=== PATIENT | male | born 1940 | race Caucasian/White ===

== ENCOUNTER 2022-03-27 08:23 | Emergency (ER) | payer OTHER ==
--- OUTSIDE RECORDS SUMMARY | 2022-03-27 08:27 | XMS REPORT | Continuity of Care Document ---
:1940 Author Organization [facility] t Address [address] [place] [address] Care Team Providers Name Role Phone Micheal Balderrama Primary Care Physician HANY RIVERO Attending Clinician Unavailable Hany Rivero MD Attending Clinician Only, Adc Test Attending Clinician Unavailable Pob, Adc Lab Main Attending Clinician Unavailable Doctor Unassigned, [place] Attending Clinician Unavailable HANY RIVERO Admitting Clinician Unavailable Hany Rivero MD Admitting Clinician Payers Payer Name Policy Type Policy Number Effective Date Expiration Date Annemarie SILVA MANAGED [id number] 2021 MEDICARE PPO-ADINA 00:00:00 Problems Condition Condition Condition Status Onset Resolution Last Treating Co mments Source Name Details Category Date Date Treatment Clinician Date NSTEMI NSTEMI Disease Active 2018-05 Methodi (non-ST (non-ST 1-18 st elevated elevated 00:00: Hospit a myocardial myocardial 00 l infarction infarction ) ) 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 Social History Social Habit Start Date Stop Date Quantity Comments Source Exposure to Not sure [facility]-CoV-2 [facility] (event) [place] Tobacco use and 2021-07-14 2021-07-14 Never used Universit y of exposure 00:00:00 00:00:00 [facility] Alcohol intake 2019-03-24 2019-03-24 Current drinker [facility] 00:00:00 00:00:00 of alcohol (finding) Sex Ass[birth year] At [birth year] [facility] 00:00:00 00:00:00 Smoking Status Start Date Stop Date Source Never smoker [facility] Medications Ordered Filled Start Stop Current Ordering Indication Dosage Frequency Signature Comments Components Source Medication Medication Date Date Medication? Clinician (SIG) Name Name lactated 2021- No 1000mL at 50 Unive rs ringers IV 08-02 mL/hr, ity of infusion 13:30: 18:38 1,000 mL, [place] as 1,000 mL 00 :56 IV Medical Infusion, Branch CONTINUOUS , Starting on Sat08/02/21 at 0830, Until Sat08/02/21 at 1338, Routine, PACU ondansetron 2021- No 4mg 4 mg, Slow Univers (ZOFRAN 08-02 IV Push, ity of (PF)) 13:29: 18:38 PRN, 1 [place] injection 4 14 :56 dose, Medical mg Starting Branch on Sat08/02/21 at 0829, Until Sat08/02/21 at 1338, Routine, Nausea and Vomiting (N/V), PACU sodium 2021- No PRN, Univers chloride 08-02 Starting ity of (NS) 13:24: 18:38 on Wed [place] injection 00 :56 1622 at Medi sonali 0824, Branch Until 08/02/21 at 1338, Routine, Intra-op neomycin-po 2021- No PRN, Unive rs lymyxin-dex 08-02 Starting ity of amethasone 13:24: 18:38 on Wed [place] (MAXITROL) 00 :56 08/02/21 at Med ical 3.5 0824, Branch mg/g-10,000 Until Sat unit/g-0.1 08/02/21 at % 1338, ophthalmic Routine, ointment Intra-op dexamethaso 2021- No PRN, Unive rs ne 08-02 Starting ity of (DECADRON 13:24: 18:38 on Sat [place] PHOSPHATE) 00 :56 08/02/21 at Med ical injection 0824, Branch Until Sat08/02/21 at 1338, Routine, Intra-op ceFAZolin 2021- No PRN, Univers (ANCEF) 08-02 Starting ity of injection 13:24: 18:38 on Sat [place] 00 :56 08/02/21 at Medical 0824, Branch Until Sat08/02/21 at 1338, NALDO, Intra-op DUOVISC 2021- No PRN, Univers (DUOVISC 08-02 Starting ity of VISCO 13:17: 18:38 on Sat [place] ELASTIC) 3 00 :56 08/02/21 at Med ical %-4 %(0.5 0817, Branch mL) 1 % Until Sat (0.55 mL) 08/02/21 at intraocular 1338, injection Routine, Intra-op carbachoL 2021- No PRN, Univers (MIOSTAT) 08-02 Starting ity o f 0.01 % 13:16: 18:38 on Sat [place] intraocular 00 :56 08/02/21 at Me dical injection 0816, Branch Until Sat08/02/21 at 1338, Routine, Intra-op EPINEPHrine 2021- No PRN, Unive rs 1:1,000 (1 08-02 Starting ity of mg/mL) 13:13: 18:38 on Sat (ADRENALIN) 00 :56 22 at Me dical injection 0813, Branch Until Sat08/02/21 at 1338, Routine, Intra-op balanced 2021- No PRN, Univers salt irrig 08-02 Starting ity of soln comb1 13:13: 18:38 [place] Sat [place] (BSS PLUS) 00 :56 08/02/21 at Med ical ophthalmic 0813, Branch solution Until Sat 500 mL bag 08/02/21 at 1338, Routine, Intra-op water for 2021- No PRN, Univers irrigation 08-02 Starting ity of irrigation 13:09: 18:38 on Sat [place] solution 00 :56 08/02/21 at Medic al 0809, Branch Until Sat08/02/21 at 1338, Routine, Intra-op Hyaluronida 2021- No PRN, Unive rs se, Human 08-02 Starting ity o f Recomb. 13:06: 18:38 on Sat (HYLENEX) 00 :56 08/02/21 at Medi sonali injection 0806, Branch Until Sat08/02/21 at 1338, Routine, Intra-op eye block 2021- No PRN, Univers syringe 11 08-02 Starting ity of mL 13:06: 18:38 on Sat 00 :56 22 at [facility] 0806, Branch Until Sat08/02/21 at 1338, Intra-op cyclopent 2021- No .5mL 0.5 mL, Univ ers 1%-tropic 08-02 Left Eye, ity of 1%-phenyl 12:00: 11:38 ONCE, 1 [place] 2.5%-ketor 00 :00 dose, On Medic al 0.5% [facility] (MYDRIATIC 08/02/21 at #5) 0700, ophthalmic Routine, solution DSU Pre-op syringe 0.5 mL fenofibrate Yes 145mg Take 145 U nivers 145 mg 3-16 mg by ity of tablet 11:38: mouth [place] 56 daily. [facility] Branch isosorbide Yes 30mg Take 30 mg U nivers mononitrate 3-16 by mouth. ity of 30 mg 24 hr 11:38: [place] tablet Medical Branch metoprolol 0 Yes 12.5mg Take 12.5 Univers tartrate 3-16 mg by ity of 12.5 mg 11:38: mouth 2 [place] [address] (two) Medical times Branch daily. metFORMIN 0 Yes 850mg Take 850 Uni vers 850 mg 3-16 mg by ity of tablet 11:38: mouth 2 [place] [address] (two) Medical times Branch daily with meals. lovastatin 0 Yes 20mg Take 20 mg U nivers 20 mg 3-16 by mouth ity of tablet 11:38: at [place] [address] bedtime. Medical Branch linaGLIPtin 0 Yes Take by Uni vers (TRADJENTA) 3-16 mouth. ity of 5 mg tablet 11:38: [address] Branch valsartan 0 Yes 80mg Take 80 mg Un belem 80 mg 3-16 by mouth ity of tablet 11:38: daily [place] [address] before a Medical meal. Branch COQ10, 0 Yes 300mg Take 300 Univer s UBIQUINOL, 3-16 mg by ity of ORAL 11:38: mouth. [place] [address] Medical Branch docosahexae 0 Yes Take by Uni vers noic 3-16 mouth. ity of acid/epa 11:38: [place] (FISH OIL Medical ORAL) Branch clopidogreL 0 Yes 75mg Take 75 mg Univers 75 mg 3-16 by mouth ity of tablet 11:38: daily. [address] aspirin 81 0 Yes 81mg Take 81 mg U nivers mg chewable 3-16 by mouth ity of tablet 11:38: daily. [address] lactated 0 2021- No 1000mL at 42 Unive rs ringers IV 3-16 03-16 mL/hr, ity of infusion 11:30: 11:48 1,000 mL, [place] as 1,000 mL 00 :00 IV Medical Infusion, Branch ONCE, 1 dose, On Sat08/02/21 at 0630, Routine, DSU Pre-op therapeutic 2018- Yes 1{tbl} QD Take 1 Me thodi multivitami 0-[address] n 16:18: mouth Hospita (THERAGRAN) 55 daily. l tablet coenzyme 2018-05 Yes 100mg QD Take 100 Meth connor Q10 (CO 0-[address] Q-10) 100 16:18: mouth Hospita mg capsule 55 daily. l linagliptin 2018-05 Yes 2.5mg QD Take 2.5 M ethodi (TRADJENTA) 0-[address] 5 mg tablet 16:18: mouth Hospi ta 55 daily with l breakfast. omega 2018-05 Yes 1000mg QD Take 1,000 Meth connor 3-dha-epa-f 0-[address] yenifer oil 16:18: mouth Hospita (FISH OIL) 55 daily. l 1,000 mg (120 mg-180 mg) capsule valsartan 2018-05 Yes 80mg QD Take 80 mg Me thodi (DIOVAN) 0-[address] 160 MG 16:18: daily. Hospita tablet 55 l metFORMIN 2018-05 Yes 850mg Q.5D Take 850 Met hodi (GLUCOPHAGE 0-[address] ) 850 mg 16:18: mouth 2 Hospit a tablet 55 (two) l times a day with meals. esomeprazol 2018-05 Yes 40mg QD Take 40 mg Methodi e (NexIUM) 0-[address] 40 MG 16:18: daily Hospita capsule 55 before l breakfast. fenofibrate 2018-05 Yes 145mg QD Take 145 M ethodi (TRICOR) 0-[address] 145 MG 16:18: mouth Hospita tablet 55 daily. l aspirin 2018-05 Yes 81mg QD Take 81 mg Meth connor (ECOTRIN) 0-[address] 81 MG 16:18: daily. Hospita enteric 55 l coated tablet nitroglycer Yes .4mg Place 1 Met hodi in 01-[address] (NITROSTAT) 00:00: (0.4 mg Hos darin 0.4 MG SL 00 total) l tablet under the tongue every 5 (five) minutes as needed for chest pain. rosuvastati Yes 20mg QD Take 2 Meth connor n (CRESTOR) 01-[address] 10 MG 00:00: (20 mg Hospita tablet 00 total) by l mouth daily. clopidogrel Yes 75mg QD Take 1 Meth connor (PLAVIX) 75 01-26 tablet (75 st mg tablet 00:00: mg total) Hos darin 00 by mouth l daily. isosorbide 2019-0 Yes 30mg QD Take 1 Metho di mononitrate 9-09 tablet (30 st (IMDUR) 30 00:00: mg total) Ho spita MG 24 hr 00 by mouth l tablet every evening. Immunizations Ordered Immunization Filled Immunization Date Status Commen ts Source Name Name PFIZER COVID-19 MRNA 2020-06-29 Completed Meth odist VACCINATION 00:00:00 [facility] PFIZER COVID-19 MRNA 2020-06-08 Completed Meth odist VACCINATION 00:00:00 Hospital Pneumococcal 2019-01-26 Completed Jew Conjugate 13-Valent 00:00:00 Hospi christine FLUCELVAX QUAD PF 2019-01-[address] 00:00:00 Hospital Vital Signs Vital Name Observation Time Observation Value Comments Source Systolic blood 2021-08-02 11:35:00 160 mm[Hg] [facility] Diastolic blood 2021-08-02 11:35:00 75 mm[Hg] [facility] Heart rate 2021-08-02 11:35:00 67 /min [facility] Body temperature 2021-08-02 11:35:00 36.39 [facility] Respiratory rate 2021-08-02 11:35:00 18 /min [facility] Oxygen saturation in 2021-08-02 11:35:00 100 /min [facility] Arterial blood by [facility] Pulse oximetry [place] Body height 2021-07-27 17:59:00 170 cm [facility] Body weight 2021-07-27 17:59:00 83.9 kg [facility] BMI 2021-07-27 17:59:00 29.03 kg/m2 [facility] Procedures Procedure Date / Time Performing Source Performed Clinician PHACOEMULSIFICATION OF 2021-08-02 Hany Rivero [facility] CATARACT WITH INTRAOCULAR 12:53:00 [facility] LENS IMPLANT POCT GLUCOSE (AUTOMATED) 2021-08-02 Hany Rivero [facility] 11:43:00 [facility] PATIENT QUESTIONNAIRE 2021-08-02 Doctor Unassigned, [facility] 05:01:00 [place] [facility] DAY SURGERY - ADC 2021-08-02 Doctor Unassigned, [facility] 05:01:00 [place] [facility] CONSENT/REFUSAL FOR DIAGNOSIS 2021-07-31 Doctor Unassigned, [facility] AND TREATMENT 14:48:25 [place] [facility] ASSIGNMENT OF BENEFITS 2021-07-31 Doctor Unassigned, [facility] 14:47:36 [place] [facility] [place] Plan of Care Planned Activity Planned Date Details Comments Source Future Scheduled 2022-03-21 HEPATITIS B VACCINES Met [facility] Test 21:30:53 (1 of 3 - 3-dose series) [code = HEPATITIS B VACCINES (1 of 3 - 3-dose series)] Future Scheduled 2022-03-21 SHINGLES VACCINES (1 Met [facility] Test 21:30:53 of 2) [code = SHINGLES VACCINES (1 of 2)] Future Scheduled 2022-03-21 65+ [facility] 21:30:53 VACCINE (2 - PPSV23 if available, else PCV20) [code = 65+ PNEUMOCOCCAL VACCINE (2 - PPSV23 if available, else PCV20)] Future Scheduled 2022-03-21 COVID-19 VACCINE (3 - Me [facility] Test 21:30:53 Booster for Pfizer series) [code = COVID-19 VACCINE (3 - Booster for Pfizer series)] Future Scheduled 2022-03-21 INFLUENZA VACCINE Method [facility] Test 21:30:53 [code = INFLUENZA VACCINE] Encounters Start End Encounter Admission Attending Care Care Encounter Source Date/Time Date/Time Type Type Clinicians Facility Department ID 2021-08-02 2021-08-02 Outpatient R CALLY RIVERO OPH [id number] Univers 06:27:00 09:15:00 HANY bergeron [facility] 2021-08-02 2021-08-02 Hospital Grady AZGERSON [id number] Univers 06:27:00 09:15:00 Encounter Hany [id number] [facility] [id number] [facility] SURGICAL [id number] [place] [address] Branch 2021-08-02 2021-08-02 Surgery Grady AZGERSON [id number] Univers 07:30:00 08:08:00 Hany ABRAMS [id number] [place]y [id number]ICAL [id number] [facility] 020 Branch 2021-07-19 2021-07-19 Outpatient R GRADY [facility] OPH [id number] Univers 06:33:00 09:23:00 HANY bergeron [facility] 2021-07-19 2021-07-19 [facility] [id number] Univers 06:33:00 09:23:00 Encounter Hany Simpson JOSE ALBERTO [id number] [id number] SUR[place]ICAL [id number] [facility] 071 Branch 2021-07-19 2021-07-19 Surgery [facility] [id number] Univers 07:30:00 08:12:00 Hany Tatiana JOSE ALBERTO [id number] [place]y [place] [id number] SURGICAL [id number] [facility] 020 Branch 2021-07-17 2021-07-17 Laboratory Only, Adc Test [facility] [id number] Univers 09:00:00 09:15:00 Only Grady Hany Tatiana JOSE ALBERTO [id number] 0 [place] [id number] [place] CAMPUS [id number] [facility] 353 [place] 2021-07-17 2021-07-17 Outpatient Sugar RIVERO [facility] [id number] Univers 09:00:00 09:00:00 HANY bergeron [facility] 2021-07-14 2021-07-14 [employer] Tester Yessenia, Adc Lab Main [facility] [id number] Univers 10:15:00 10:30:00 Visit Hany Rivero [id number] 0 [place] [id number] PROFESSIO [id number] [address] 2021-07-14 2021-07-14 Outpatient R GRADY [facility] [id number] Univers 10:15:00 10:15:00 HANY bergeron of [facility] 2021-07-14 2021-07-14 Orders Doctor JOSE [id number] Univers 00:00:00 00:00:00 Only Unassigned, JORDON [id number] ity of [place] [facility] [id number] [place] as [id number] [address] 2020-06-29 2020-06-29 Outpatient [facility] [id number] [place] 00:00:00 00:00:[address] 2020-06-08 2020-06-08 Outpatient [facility] [id number] [place] 00:00:00 00:00:[address] Results Test Description Test Time Test Comments Results Result Comments Source POCT GLUCOSE (AUTOMATED) 2021-08-02 12:11:49 Test Item Value Reference Range Interpretation Comme nts POCT GLU (test code = 7810506320) 139 mg/dL 70-110 H Lab Interpretation (test code = 05647-1) [id number] 11:43:00 Test Item Value Reference Range Interpretation Comments POCT Glu (age>30days) (test code = 139 mg/dL 70-110 A 3342) Lab Interpretation (test code = Abnormal 00253-3) [facility]
[2022-03-27 08:46] LABS: Absolute Lymphocytes (CBC) 1.1 K/uL (0.7-4.9); Hematocrit 41.1 % (39.6-49.0); Lymphocytes % 7.1 % (15.3-44.8); MCV 96.8 fL (80-100); MPV 8.5 fL (7.6-11.3); RBC Red Blood Cell Count 4.25 M/uL (4.33-5.43)
[2022-03-27 08:51] LABS: Protime INR 1.04
[2022-03-27 09:08] LABS: Potassium 4.1 mmol/L (3.5-5.1); Troponin High Sensitivity 10.2 pg/mL (<58.9)
--- NOTE | 2022-03-27 09:35 | RAD REPORT ---
EXAM DESCRIPTION: RAD - Chest Single View - 03/27/2022 9:22 am CLINICAL HISTORY: CHEST PAIN COMPARISON: None TECHNIQUE: AP portable chest image was obtained 03/27/2022 9:22 am . FINDINGS: No focal mass or consolidation. Interstitial pattern is accentuated by under penetrated po rtable technique. Increased density in the lower left lung field is believed to be calcification at t he costochondral junction. No failure or volume overload. Heart and vasculature are normal. No measurable pleural effusion and no pneumothorax. No acute bony abnormality seen. No acute aortic findings suspected. IMPRESSION: No acute cardiopulmonary process.
--- NOTE | 2022-03-27 10:29 | EDPHYS ---
Physician Documentation [facility] Name: Gerardo Lane City Age: 82 yrs Sex: Male : 1940 Arrival Date: 03/27/2022 Time: 08:31 Bed 4 Private MD: ED Physician hCas Seaman HPI: 03/27 09:15 This 82 yrs old Male presents to ER via EMS with complaints of chest pain. rn 09:15 The patient or guardian reports chest pain that is located primarily in the substernal rn area. Onset: this morning. The pain does not radiate. Associated signs and symptoms: Pertinent positives: None. Pertinent negatives: abdominal pain, cough, shortness of breath, syncope, vomiting. The chest pain is described as a heaviness, a pressure. Duration: The patient or guardian reports a single episode, that is still ongoing. Modifying factors: The symptoms are alleviated by NTG, the symptoms are aggravated by nothing. Severity of pain: At its worst the pain was moderate in the emergency department the pain has improved. Severity of pain: in the emergency department the pain is a 1 / 10. The patient has experienced similar episodes in the past. The patient has not recently seen a physician. Pt reports chest pain, substernal, pressure, similar to previous CA, began this AM, no radiation, improved after 5 nitro. . Historical: - Allergies: 08:40 No Known Allergies; tw2 - Home Meds: 08:48 amlodipine 2.5 mg tab 1 tab once daily [Active]; Plavix 75 mg Oral tab 1 tab once daily tw2 [Active]; esomeprazole magnesium 40 mg oral grps 1 packet once daily [Active]; fenofibrate 145 mg oral cap 1 cap once daily [Active]; isosorbide mononitrate 60 mg Oral Tb24 1 tab once daily [Active]; Metoprolol Tartrate 12.5 mg Oral [Active]; metformin 850 mg Oral tab 1 tab 2 times per day [Active]; nitroglycerin 0.4 mg SL subl 1 tab [Active]; rosuvastatin 20 mg oral tab 1 tab once daily [Active]; Tradjenta 5 mg oral tab 1 tab once daily [Active]; valsartan 80 mg oral tab 1 tab once daily [Active]; aspirin 81 mg Oral cap 1 cap once daily [Active]; CoQ-10 300 mg oral [Active]; Fish Oil 1,000 mg (120 mg-180 mg) oral cap [Active]; Multiple Vitamins oral tab [Active]; - PMHx: 08:40 Diabetes mellitus; Stemi; tw2 - PSHx: 08:40 6 cardiac stents; tw2 - Immunization history:: Adult Immunizations. - Social history:: Smoking status: . - Family history:: not pertinent. - Hospitalizations: : No recent hospitalization is reported. ROS: 09:15 Constitutional: Negative for fever, chills, and weight loss, Eyes: Negative for injury, rn pain, redness, and discharge, Neck: Negative for injury, pain, and swelling, Cardiovascular: + chest pain Respiratory: Negative for shortness of breath, cough, wheezing, and pleuritic chest pain, Abdomen/GI: Negative for abdominal pain, nausea, vomiting, diarrhea, and constipation, Back: Negative for injury and pain, MS/Extremity: Negative for injury and deformity, Skin: Negative for injury, rash, and discoloration, Neuro: Negative for headache, weakness, numbness, tingling, and seizure. Exam: 09:15 Constitutional: This is a well developed, well nourished patient who is awake, alert, rn and in no acute distress. Head/Face: Normocephalic, atraumatic. Cardiovascular: Tachycardic, regular. No pulse deficits. Respiratory: Mild tachypnea, no retractions Abdomen/GI: Soft, non-tender Skin: Warm, dry MS/ Extremity: Pulses equal, no cyanosis. Neuro: Awake and alert, GCS 15 10:13 ECG was reviewed by the Attending Physician. rn Vital Signs: 08:25 BP 133 / 78; Pulse 112; Resp 25; Temp 98.4(TE); Pulse Ox 97% on R/A; Weight 81.65 kg tw2 (R); Height 5 ft. 7 in. (170.18 cm); Pain 0/10; 09:39 BP 137 / 81; Pulse 110; Resp 22; Pulse Ox 96% on R/A; tw2 10:30 BP 136 / 75; Pulse 108; Resp 20; Pulse Ox 96% on R/A; tw2 11:33 BP 130 / 59; Pulse 109; Resp 17; Pulse Ox 97% on R/A; tw2 12:21 BP 130 / 69; Pulse 110; Resp 19; Pulse Ox 97% on R/A; tw2 08:25 Body Mass Index 28.19 (81.65 kg, 170.18 cm) tw2 MDM: 08:31 Patient medically screened. rn 10:27 Differential diagnosis: acute myocardial infarction, acute pericarditis, coronary rn artery disease chest wall pain, pleurisy, pneumothorax, stable angina, unstable angina. The patient was not given aspirin in the Emergency Department. Administered by EMS. 10:28 Data reviewed: vital signs, nurses notes, lab test result(s), EKG, radiologic studies, rn plain films, and as a result, I will admit patient. Counseling: I had a detailed discussion with the patient and/or guardian regarding: the historical points, exam findings, and any diagnostic results supporting the discharge/admit diagnosis, lab results, radiology results, the need to transfer to another facility, his hog raiser is at [facility], requests transfer to [facility]. Response to treatment: the patient's symptoms have markedly improved after treatment, declines pain medication. , and as a result, I will admit patient. Admission orders: after a detailed discussion of the patient's condition and case, the admit orders are written by me. Admission orders: after a detailed discussion of the patient's condition and case, the admit orders are written by me. 12:03 Refusal of service: The patient/guardian displays adequate decision making capability rn and despite a detailed discussion of alternatives, benefits, risks, and consequences refuses: Admission to the hospital for further work-up and treatment. ED course: [facility] unable to accommodate patient, even ER to ER transfer, I spoke with patient;s hog raiser Dr. Hassan and he called transfer center to try and make room, unable to as well. Patient and family do not want to be admitted here or transferred anywhere other than [facility]. They refuse admission here. They want to take patient home and are considering taking patient to [facility] by private vehicle. My official recommendation was to admit here for cardiology. They understand risks of leaving without cardiology consultation and intervention. . 03/27 08:32 Order name: Basic Metabolic Panel; Complete Time: :14 rn 03/27 08:32 Order name: CBC with Diff; Complete Time: : rn 03/27 08:32 Order name: NT PRO-BNP; Complete Time: : rn 03/27 08:32 Order name: PT-INR; Complete Time: 09:14 rn 03/27 08:32 Order name: Troponin HS; Complete Time: 09:14 rn 03/27 08:32 Order name: XRAY Chest (1 view); Complete Time: 09:38 rn 03/27 08:32 Order name: EKG; Complete Time: 08:33 rn 03/27 08:32 Order name: Cardiac monitoring; Complete Time: 08:36 rn 03/27 08:32 Order name: EKG - Nurse/Tech; Complete Time: 08:36 rn 03/27 08:32 Order name: IV Saline Lock; Complete Time: 08:36 rn 03/27 08:32 Order name: Labs collected and sent; Complete Time: 08:44 rn 03/27 08:32 Order name: O2 Per Protocol; Complete Time: 08:36 rn 03/27 08:32 Order name: O2 Sat Monitoring; Complete Time: 08:36 rn EC:13 Rate is 115 beats/min. Rhythm is regular. Left axis deviation noted. QRS is positive in rn lead I and negative in lead aVF. NH interval is normal. QRS interval is normal. QT interval is normal. No Q waves. T waves are Normal. No ST changes noted. Clinical impression: Sinus tachycardia. Interpreted by me. Reviewed by me. Administered Medications: 10:34 Drug: PlaVIX (clopidogrel) 75 mg Route: PO; tw2 11:35 Follow up: Response: No adverse reaction tw2 Disposition Summary: 03/27/22 12:03 Discharge Ordered Location: Home rn Problem: new(03/27/22 12:03) rn Symptoms: have improved(03/27/22 12:03) rn Condition: Stable(03/27/22 12:03) rn Diagnosis - Chest pain, unspecified(03/27/22 12:03) rn Followup: rn - With: Private Physician - When: Upon discharge from the Emergency Department - Reason: Recheck today's complaints, Re-evaluation by your physician Discharge Instructions: - Discharge Summary Sheet rn - Nonspecific Chest Pain, Adult rn Forms: - Medication Reconciliation Form rn - Thank You Letter rn - Antibiotic pharmacy graduate intern - Prescription Opioid Use rn Signatures: Dispatcher [employer] EDChas Dash MD MD rn Wise, Tara, RN RN tw2 Corrections: (The following items were deleted from the chart) : 10: Dr. Hassan rn rn 10: [facility] rn rn 10: Higher level of care rn rn : Stable rn rn 10: new rn rn : have improved rn rn : 10: Chest pain, unspecified rn rn
--- NOTE | 2022-03-27 10:29 | ER ---
Nurse's Notes [facility] Name: Gerardo Dawson Age: 82 yrs Sex: Male : 1940 Arrival Date: 03/27/2022 Time: 08:31 Bed 4 Private MD: Diagnosis: Chest pain, unspecified Presentation: 03/27 08:25 Chief complaint: EMS states: pt states chest pain started 2.5 hours ago. pain does not tw2 radiate. pain /. 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 we gave 2 Nitro SL and it did reduce pain /. BP 160/70's HR 120's. BGL 199. does take Plavix. Pt took Plavix yesterday. Hx: 6 cardiac stents, stemi, dm. Coronavirus screen: At this time, the client does not indicate any symptoms associated with coronavirus-19. Ebola Screen: Patient denies travel to an Ebola-affected area in the 21 days before illness onset. Initial Sepsis Screen: Does the patient meet any 2 criteria? HR > 90 bpm. No. Patient's initial sepsis screen is negative. Does the patient have a suspected source of infection? No. Patient's initial sepsis screen is negative. Risk Assessment: Do you want to hurt yourself or someone else? Patient reports no desire to harm self or others. Note provider at bedside at this time. Onset of symptoms was March 27, 2022. Care prior to arrival: Medication(s) given: Nitroglycerin, 0.4 mg SL x 2, IV initiated. 18 GA, in the left antecubital area, Glucose check: 199. 08:25 Method Of Arrival: EMS: [facility] tw2 08:25 Acuity: JONG 3 tw2 Triage Assessment: 08:40 General: Appears in no apparent distress. well groomed, Behavior is calm, cooperative, tw2 appropriate for age. Pain: Denies pain. Neuro: Level of Consciousness is awake, alert, obeys commands, Oriented to person, place, time, situation. Cardiovascular: Capillary refill < 3 seconds Patient's skin is warm and dry. Respiratory: Airway is patent Respiratory effort is even, unlabored, Respiratory pattern is regular, symmetrical. GI: No signs and/or symptoms were reported involving the gastrointestinal system. Abdomen is round non-distended. : No signs and/or symptoms were reported regarding the genitourinary system. Musculoskeletal: Range of motion: intact in all extremities. Historical: - Allergies: 08:40 No Known Allergies; tw2 - Home Meds: 08:48 amlodipine 2.5 mg tab 1 tab once daily [Active]; Plavix 75 mg Oral tab 1 tab once daily tw2 [Active]; esomeprazole magnesium 40 mg oral grps 1 packet once daily [Active]; fenofibrate 145 mg oral cap 1 cap once daily [Active]; isosorbide mononitrate 60 mg Oral Tb24 1 tab once daily [Active]; Metoprolol Tartrate 12.5 mg Oral [Active]; metformin 850 mg Oral tab 1 tab 2 times per day [Active]; nitroglycerin 0.4 mg SL subl 1 tab [Active]; rosuvastatin 20 mg oral tab 1 tab once daily [Active]; Tradjenta 5 mg oral tab 1 tab once daily [Active]; valsartan 80 mg oral tab 1 tab once daily [Active]; aspirin 81 mg Oral cap 1 cap once daily [Active]; CoQ-10 300 mg oral [Active]; Fish Oil 1,000 mg (120 mg-180 mg) oral cap [Active]; Multiple Vitamins oral tab [Active]; - PMHx: 08:40 Diabetes mellitus; Stemi; tw2 - PSHx: 08:40 6 cardiac stents; tw2 - Immunization history:: Adult Immunizations. - Social history:: Smoking status: . - Family history:: not pertinent. - Hospitalizations: : No recent hospitalization is reported. Screenin:41 Abuse screen: Denies threats or abuse. Nutritional screening: No deficits noted. tw2 Nutritional screening: No deficits noted. Tuberculosis screening: No symptoms or risk factors identified. Fall Risk None identified. Assessment: 08:39 Reassessment: Patient is alert, oriented x 3, equal unlabored respirations, skin aa5 warm/dry/pink. Pt notified of wait time for blood lab results. . 08:41 Reassessment: pts spouse at bedside at this time. see triage assessment. tw2 09:39 Reassessment: Patient appears in no apparent distress at this time. No changes from tw2 previously documented assessment. Patient and/or family updated on plan of care and expected duration. Pain level reassessed. Patient is alert, oriented x 3, equal unlabored respirations, skin warm/dry/pink. 10:30 Reassessment: Patient appears in no apparent distress at this time. No changes from tw2 previously documented assessment. Patient and/or family updated on plan of care and expected duration. Pain level reassessed. Patient is alert, oriented x 3, equal unlabored respirations, skin warm/dry/pink. 11:34 Reassessment: Patient appears in no apparent distress at this time. No changes from tw2 previously documented assessment. Patient and/or family updated on plan of care and expected duration. Pain level reassessed. Patient is alert, oriented x 3, equal unlabored respirations, skin warm/dry/pink. Vital Signs: 08:25 BP 133 / 78; Pulse 112; Resp 25; Temp 98.4(TE); Pulse Ox 97% on R/A; Weight 81.65 kg tw2 (R); Height 5 ft. 7 in. (170.18 cm); Pain 0/10; 09:39 BP 137 / 81; Pulse 110; Resp 22; Pulse Ox 96% on R/A; tw2 10:30 BP 136 / 75; Pulse 108; Resp 20; Pulse Ox 96% on R/A; tw2 11:33 BP 130 / 59; Pulse 109; Resp 17; Pulse Ox 97% on R/A; tw2 12:21 BP 130 / 69; Pulse 110; Resp 19; Pulse Ox 97% on R/A; tw2 08:25 Body Mass Index 28.19 (81.65 kg, 170.18 cm) tw2 ED Course: 08:30 Placed in gown. Bed in low position. Side rails up X2. check cashier on. Pulse ox on. tw2 NIBP on. Warm blanket given. Pillow given. 08:31 Patient arrived in ED. rn 08:31 Chas Seaman MD is Attending Physician. rn 08:36 Lisa Lynn, TIFFANIE is Primary Nurse. tw2 08:39 Initial lab(s) drawn, by me, sent to lab. aa5 08:39 Maintain EMS IV. Dressing intact. Good blood return noted. Site clean \\T\\ dry. Gauge \\T\\ aa 5 site: 18G to L AC . 08:40 Triage completed. tw2 08:40 Arm band placed on. tw2 09:24 XRAY Chest (1 view) In Process Unspecified. EDMS 10:17 initiated transfer to [facility]. bd 10:20 pt denied at [facility] due to no capacity, per [place]. bd 11:17 spoke with Agustina at [facility], dr Hassan did initiate transfer but facility is at capacity with ER on saturation and are not able to take the patient at this time. 12:20 No provider procedures requiring assistance completed. IV discontinued, intact, tw2 bleeding controlled, No redness/swelling at site. Pressure dressing applied. Administered Medications: 10:34 Drug: PlaVIX (clopidogrel) 75 mg Route: PO; tw2 11:35 Follow up: Response: No adverse reaction tw2 Medication: 08:41 VIS not applicable for this client. tw2 Outcome: 10:29 ER care complete, transfer ordered by MD. rn 12:03 Discharge ordered by MD. rn 12:20 Discharged to home via wheelchair, with family. tw2 12:20 Condition: stable 12:20 Discharge instructions given to patient, family, Instructed on discharge instructions, follow up and referral plans. Demonstrated understanding of instructions, follow-up care, going to pts stage hand. pts states "yes, we are going straight there" 12:21 Patient left the ED. tw2 Signatures: Dispatcher [employer] EDMS Shanna Deng Roman, MD MD rn Calderon, Audri RN RN aa5 Lisa Lynn RN RN tw2
[2022-03-27] MEDS ORDERED: CLOPIDOGREL 75 MG TABLET ONE (10:31)
[2022-03-27 12:53] VITALS: TEMP 98.4
[2022-03-27 12:57] VITALS: O2SAT 97
[2022-03-27 12:58] VITALS: BP 130/69
--- NOTE | 2022-03-27 13:55 | EKG ---
Test Date: 2022-03-27 Test Time: 08:32:51 Dissolver Operator: IKE MEASUREMENT RESULTS: Intervals: Rate: 115 MO: 166 QRSD: 80 QT: 314 QTc: 434 [place]: P: 69 MO: 166 QRS: -54 T: 64 INTERPRETIVE STATEMENTS: Sinus tachycardia Left axis deviation Possible Lateral infarct, age undetermined Inferior infarct, age undetermined Abnormal ECG Compared to ECG 04/22/2008 09:09:01 Left-axis deviation now present Myocardial infarct finding now present Sinus rhythm no longer present Electronically Signed On 03-27-22 13:53:52 MASS SPECTROMETRY SPECIALIST by Sawyer Stevens
== END 2022-03-27 12:21 | disposition home or self-care (01) ==
LOC: ER 08:23
DX: R07.9 Chest pain, unspecified (principal); E11.9 Type 2 diabetes mellitus without complications; Z95.5 Presence of coronary angioplasty implant and graft
CPT/HCPCS: 36415; 71045; 80048; 83880; 84484; 85025; 85610; 93005; 99284

== ENCOUNTER 2023-12-16 08:58 | Inpatient (IN) | payer OTHER ==
[2023-12-16 09:21] LABS: Absolute Eosinophils 0.2 K/uL (0-0.5); Absolute Lymphocytes (CBC) 1.7 K/uL (0.7-4.9); Absolute Monocytes 0.8 K/uL (0.1-1.3); Absolute Neutrophil 5.5 K/uL (1.8-8.0); Basophils % 0.5 % (0-1.3); Eosinophils % 1.9 % (0-4.4); Hematocrit 32.9 % (39.6-49.0); Hemoglobin 10.9 g/dL (13.6-17.9); Lymphocytes % 20.3 % (15.3-44.8); MCH 33.7 pg (27.0-35.0); MCV 102.4 fL (80-100); MPV 9.1 fL (7.6-11.3); Monocytes % 9.9 % (3.3-12.3); Neutrophils % 67.4 % (41.7-73.7); Platelets 176 thou/uL (152-406); RBC Red Blood Cell Count 3.22 M/uL (4.33-5.43); Red Cell Distribution Width 13.6 % (12.1-15.2)
--- NOTE | 2023-12-16 09:26 | RAD REPORT ---
EXAM DESCRIPTION: CT - Ct Stroke Brain Wo Cont - 12/16/2023 9:17 am CLINICAL HISTORY: STROKE ALERT COMPARISON: No comparisons TECHNIQUE: Noncontrast head CT images were obtained without IV contrast. Multiplanar reformats were generated and reviewed. All CT scans are performed using dose optimization technique as appropriate and may include automated exposure control or mA/KV adjustment according to patient size. FINDINGS: No intracranial hemorrhage, mass, or edema. Midline structures are unremarkable. Normal ventricular caliber for age. Tavares-white matter differentiation is preserved, without evidence of acute infarct. No abnormal extra- axial fluid collections. Mastoid air cells and visualized portions of the paranasal sinuses are clear. No acute bony findings. IMPRESSION: No evidence of an acute intracranial process. The findings were communicated to Chas Seaman on 12/16/2023 at 09:22 hours.
[2023-12-16 09:27] LABS: PTT, Activated Partial Thromb 22.7 SECONDS (24.3-36.9); Protime INR 1.07
--- NOTE | 2023-12-16 09:28 | RAD REPORT ---
EXAM DESCRIPTION: CT - Head angio - 12/16/2023 9:17 am CLINICAL HISTORY: stroke COMPARISON: Ct Stroke Brain Wo Cont dated 12/16/2023; Neck Angio dated 12/16/2023 TECHNIQUE: Axial CT angiography images of the head was performed with multiplanar and maximum intens ity projection reconstructions. Images performed following intravenous administration of iodinated c ontrast. All CT scans are performed using dose optimization technique as appropriate and may include automated exposure control or mA/KV adjustment according to patient size. FINDINGS: No evidence of large vessel occlusion. Up to moderate atherosclerotic calcifications along the bilateral carotid siphons with no significant stenosis. No evidence of aneurysm or dissection fl ap is detected. No flow-limiting stenosis or vascular malformation identified. Antegrade flow is seen in the vertebral arteries. The vertebral arteries are codominant. The visualized dural venous sinuses are grossly patent. Nonspecific gas locules along the cavernous sinuses, left sigmoid sinus, and in the infratemporal sof t tissues, likely iatrogenic. IMPRESSION: No evidence of large vessel occlusion or flow-limiting stenosis.
--- NOTE | 2023-12-16 09:29 | RAD REPORT ---
EXAM DESCRIPTION: CT - Neck Angio - 12/16/2023 9:17 am CLINICAL HISTORY: stroke aler COMPARISON: Ct Stroke Brain Wo Cont dated 12/16/2023; Head angio dated 12/16/2023 TECHNIQUE: Axial CT angiography images of the neck was performed with multiplanar and maximum intens ity projection reconstructions. Images performed following intravenous administration of iodinated c ontrast. All CT scans are performed using dose optimization technique as appropriate and may include automated exposure control or mA/KV adjustment according to patient size. Quantification of carotid stenosis, if any, is performed according to NASCET criteria. 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 No significant flow abnormality is seen of the common carotid bilaterally. [id number] bilateral proximal ICA atherosclerotic changes. No significant stenosis is identifie d involving the cervical segments of both internal carotid arteries. Normal flow is seen within both vertebral arteries. IMPRESSION: No significant flow abnormality of the neck vessels is identified. CAROTID STENOSIS REFERENCE USING NASCET CRITERIA: % ICA stenosis = (1 - narrowest ICA diameter/diameter of distal cervical ICA) x 100. Mild - <50% stenosis. Moderate - 50-69% stenosis. Severe - 70-94% stenosis. Near occlusion - 95-99% stenosis. Occluded - 100% stenosis.
[2023-12-16] MEDS ORDERED: TENECTEPLASE 50 MG/10 ML VIAL IV ONE (09:40)
[2023-12-16 09:49] LABS: Blood Morphology Comment NOT SEEN (NOT SEEN); Platelet Estimate ADEQ; White Blood Cell Scan OK (OK)
[2023-12-16] MEDS ORDERED: METOCLOPRAMIDE 10 MG/2mL INJ ONE (10:07)
[2023-12-16] MEDS ORDERED: NA CHLORIDE 0.9% 50 ML ONE (10:08)
[2023-12-16 10:20] LABS: Anion Gap 10.1 mEq/L (5.0-15.0); Bilirubin Direct 0.2 mg/dL (0-0.2); Bilirubin Indirect, Calculated 0.2 mg/dL (0.2-0.8); Bilirubin Total 0.4 mg/dL (0.2-1.0); Globulin 2.9 g/dL (2.3-3.5); Potassium 4.1 mEq/L (3.5-5.1); Protein, Total 5.9 g/dL (6.4-8.2); Troponin High Sensitivity 5.1 pg/mL (<58.9)
--- NOTE | 2023-12-16 10:26 | ER ---
Nurse's Notes [facility] Name: Gerardo Dawson Age: 83 yrs Sex: Male : 1940 Arrival Date: 12/16/2023 Time: 08:58 Bed 2 Private MD: Diagnosis: Slurred speech;Weakness Presentation: 12/15 09:04 Coronavirus screen: At this time, the client does not indicate any symptoms associated ld1 with coronavirus-19. Ebola Screen: No symptoms or risks identified at this time. Risk Assessment: Do you want to hurt yourself or someone else? Patient reports no desire to harm self or others. Onset of symptoms was December 16, 2023. 09:04 Method Of Arrival: EMS: [facility] ld1 09:04 Acuity: JONG 2 ld1 09:32 Chief complaint: EMS states: they were called to the patients home for s/s of possible ap3 stroke. reported to EMS that the patient was at the table and called out to her that he thought he was having a stroke. patients last known well is 0815 per 's report. patient reported to that he had bilateral hand numbness. patients reported that his speech was slowed and slurred compared to his baseline. Initial Sepsis Screen: Does the patient meet any 2 criteria? No. Patient's initial sepsis screen is negative. Does the patient have a suspected source of infection? No. Patient's initial sepsis screen is negative. Care prior to arrival: Medication(s) given: Normal saline infusion, zofran 4 mg, IV initiated. 20 GA, in the right forearm. Triage Assessment: 09:34 General: Appears comfortable, Behavior is cooperative. Pain:. Neuro: Level of ap3 Consciousness is obeys commands, confused, Oriented to person, place, Speech patients reports the patients speech is slower and more slurred compared to patients baseline . Cardiovascular:. Cardiovascular: Pulses are palpable in right radial artery and left radial artery. Respiratory: Airway is patent Respiratory effort is even, unlabored, Respiratory pattern is regular, symmetrical. Derm: Skin is diaphoretic. Historical: - Allergies: 09:03 No Known Allergies; ld1 - PMHx: 09:03 diabetes mellitus; STEMI; ld1 - PSHx: :03 6 cardiac stents; ld1 - Immunization history:: Adult Immunizations up to date. - Infectious Disease History:: Denies. - Social history:: Smoking status: Patient denies any tobacco usage or history of. Screenin:37 Abuse screen: Denies threats or abuse. Nutritional screening: No deficits noted. ap3 Tuberculosis screening: No symptoms or risk factors identified. 10:01 VAN Screening: Arm Drift: Patient shows no arm weakness. Patient is VAN negative. es3 Visual Disturbance: No visual disturbance noted. Aphasia: No aphasia noted. Neglect: No neglect noted. 10:46 [place] Swallow Protocol Brief Cognitive Screen What is your name? Normal, Where are you ap3 right now? Normal, What year is it? Normal. Oral Mechanism Examination Facial Symmetry: Normal, Motion: Normal, Lip Closure: Normal, Oral Mechanism Result: Normal. 3 oz Water Swallow Challenge: Pt able to drink all water without stopping, coughing, choking or throat clearing: Yes Result: PASS MD Notified: Osorio Palmer MD. Assessment: 09:02 Reassessment: Code stroke called. ERP at bedside assessing patient. ld1 09:03 Reassessment: Pt to CT at this time. ld1 10:18 Reassessment: Patient states symptoms have improved. General: Appears in no apparent ap3 distress. Behavior is cooperative. Neuro: Level of Consciousness is awake, alert, obeys commands, Oriented to person, place, Die Mounter are equal bilaterally Speech improving. Cardiovascular: Patient's skin is warm and dry. Respiratory: Airway is patent Respiratory effort is even, unlabored, Respiratory pattern is regular, symmetrical. 11:58 Reassessment: report given to ICU receiving nurse. ap3 Vital Signs: 09:32 BP 144 / 82; Pulse 77; Resp 16; Pulse Ox 95% on R/A; ap3 10:18 BP 138 / 72; Pulse 78; Resp 17; Temp 98.2; Pulse Ox 98% on R/A; Weight 81.19 kg; ap3 10:50 BP 127 / 75; Pulse 75; Resp 17; Pulse Ox 100% on R/A; ap3 11:59 BP 149 / 80; Pulse 79; Resp 18; Pulse Ox 100% on R/A; ap3 NIH Stroke Scale Scores: 10:03 NIHSS Score: 2 es3 10:13 NIHSS Score: 2 ec2 ED Course: 09:03 Patient arrived in ED. ap3 09:03 Osorio Palmer MD is Attending Physician. ec2 09:04 Triage completed. ld1 09:04 Arm band placed on right wrist. ld1 09:19 CT Neck Angio In Process Unspecified. EDMS 09:19 CT Stroke Brain w/o Contrast In Process Unspecified. EDMS 09:19 Head angio In Process Unspecified. EDMS 09:32 Sofia Christie, TIFFANIE is Primary Nurse. ap3 09:56 AMMONIA Sent. ld1 10:19 Patient has correct armband on for positive identification. Placed in gown. Bed in low ap3 position. Call light in reach. Side rails up X2. Client placed on continuous cardiac and pulse oximetry monitoring. NIBP monitoring applied. patient monitor on. Pulse ox on. NIBP on. 10:24 Stroke CXR 1 View In Process Unspecified. EDMS 10:25 Tatiana Balderrama MD is Hospitalizing Provider. ec2 Administered Medications: 09:45 Drug: TNK FOR STROKE - Tenecteplase IV (Administer 10 ml NS flush BEFORE and ap3 AFTER tenecteplase) 0.25 mg/kg IV at per protocol once; MAX DOSE 25 mg, IVP over 5 seconds {Co-Signature: ld1 (Suzanna Ritchie RN).} Route: IV; Rate: per protocol; Site: right forearm; 10:20 Drug: metoCLOPramide IVP 10 mg IVP once; over 1 to 2 minutes Route: IVP; Site: right ap3 forearm; Medication: 10:19 VIS not applicable for this client. ap3 Outcome: 10:25 Decision to Hospitalize by Provider. ec2 12:14 Patient left the ED. bd 17:20 Patient left the ED. ap3 NIH Stroke Scale - NIH Stroke Score Date: 12/16/2023 Time: 10:03 Total Score = 2 10. Dysarthria (speech clarity - read or repeat words) - 1(Mild to Moderate) 11. Extinction and Inattention (visual/tactile/auditory/spatial/personal) - 0(No abnormality) 1a. Level of Consciousness (LOC) - 0(Alert) 1b. Level of Consciousness (LOC) (Month \T\ Age) - 0(Both) 1c. LOC Commands (Open \T\ Closes Eyes/Ranch Hand Supervisor) - 0(Both) 2. Best Gaze (Lateral Gaze Paresis) - 0(Normal) 3. Visual Field Loss - 0(No visual loss) 4. Facial Palsy - 0(Normal) 5a. Left Arm: Motor (10-second hold) - 0(No drift) 5b. Right Arm: Motor (10-second hold) - 0(No drift) 6a. Left Leg: Motor (5-second hold - always test supine) - 0(No drift) 6b. Right Leg: Motor (5-second hold - always test supine) - 0(No drift) 7. Limb Ataxia (finger/nose \T\ heel/langley - test with eyes open) - 0(Absent) 8. Sensory Loss (pinprick arms/legs/face) - 1(Mild to moderate loss) 9. Best Language: Aphasia (description/naming/reading) - 0(No aphasia) Initials: es3 NIH Stroke Scale - NIH Stroke Score Date: 12/16/2023 Time: 10:13 Total Score = 2 10. Dysarthria (speech clarity - read or repeat words) - 1(Mild to Moderate) 11. Extinction and Inattention (visual/tactile/auditory/spatial/personal) - 0(No abnormality) 1a. Level of Consciousness (LOC) - 0(Alert) 1b. Level of Consciousness (LOC) (Month \T\ Age) - 0(Both) 1c. LOC Commands (Open \T\ Closes Eyes/Ranch Hand Supervisor) - 0(Both) 2. Best Gaze (Lateral Gaze Paresis) - 0(Normal) 3. Visual Field Loss - 0(No visual loss) 4. Facial Palsy - 0(Normal) 5a. Left Arm: Motor (10-second hold) - 0(No drift) 5b. Right Arm: Motor (10-second hold) - 0(No drift) 6a. Left Leg: Motor (5-second hold - always test supine) - 0(No drift) 6b. Right Leg: Motor (5-second hold - always test supine) - 0(No drift) 7. Limb Ataxia (finger/nose \T\ heel/langley - test with eyes open) - 0(Absent) 8. Sensory Loss (pinprick arms/legs/face) - 1(Mild to moderate loss) 9. Best Language: Aphasia (description/naming/reading) - 0(No aphasia) Initials: ec2 Signatures: Dispatcher [employer] EDMS Shanna Deng Amanda, RN RN ap3 RitchieSuzanna RN RN ld1 Osorio Palmer MD MD ec2 Mirian Hawkins RN RN es3 Suzanna Ritchie RN ld1 Corrections: (The following items were deleted from the chart) 09: 09:02 Reassessment: Code stroke called ld1 ld1 10:03 10:02 [place] [facility] Protocol Exclusion Criteria: Unable to remain alert for es3 testing: Yes es3
--- NOTE | 2023-12-16 10:26 | EDPHYS ---
Physician Documentation [facility] Name: Gerardo [place] Age: 83 yrs Sex: Male : 1940 Arrival Date: 12/16/2023 Time: 08:58 Bed 2 Private MD: ED Physician Osorio Palmer HPI: 12/15 09:05 This 83 yrs old Male presents to ER via EMS with complaints of S/S of ec2 Possible Stroke. 09:05 Patient arrives today for evaluation of altered mental status as well as word finding ec2 difficulties last known well of approximately 45 minutes prior to arrival. Patient woke up in a normal state of health this morning. Reportedly became significantly altered. EMS reports that he was having word finding difficulties and has normal vital signs and normal blood sugar. Patient arrives as a stroke alert. Stroke alert activation occurred.. Historical: - Allergies: 09:03 No Known Allergies; ld1 - PMHx: 09:03 diabetes mellitus; STEMI; ld1 - PSHx: 09:03 6 cardiac stents; ld1 - Immunization history:: Adult Immunizations up to date. - Infectious Disease History:: Denies. - Social history:: Smoking status: Patient denies any tobacco usage or history of. ROS: 09:05 Constitutional: as per hpi ec2 Exam: 09:05 Constitutional: GEN: NAD Head: atraumatic Eyes: EOMI Ears: External ears are ec2 normal. CV: regular rate LUNGS: no respiratory distress ABD: non-distended SKIN: no evidence of rashes MSK: no evidence of trauma NEURO: Confused individual who is having word finding difficulties who appears moves all extremities equally however has difficulty with direction. 09:56 Radiologist reports: pneumocephalus, no bleed ec2 Vital Signs: 09:32 BP 144 / 82; Pulse 77; Resp 16; Pulse Ox 95% on R/A; ap3 10:18 BP 138 / 72; Pulse 78; Resp 17; Temp 98.2; Pulse Ox 98% on R/A; Weight 81.19 kg; ap3 10:50 BP 127 / 75; Pulse 75; Resp 17; Pulse Ox 100% on R/A; ap3 11:59 BP 149 / 80; Pulse 79; Resp 18; Pulse Ox 100% on R/A; ap3 NIH Stroke Scale Scores: 10:03 NIHSS Score: 2 es3 10:13 NIHSS Score: 2 ec2 MDM: 09:03 Patient medically screened. ec2 09:05 Data reviewed: vital signs. ED course: Patient arrives today for evaluation of altered ec2 mental status, word finding difficulties. Examination remarkable for confusion individual who has difficulty following commands. Will obtain stroke workup, CT head, CT angio head and neck, lab work. Differential includes stroke, urinary tract infection, arrhythmia.. 09:56 TNKase (Tenecteplase) Screening: Indications: Definite evidence of stroke, ischemic, ec2 embolic, or hypertensive: Yes. Treatment will start within 4.5 hours onset of symptoms: Yes. No evidence of intracranial hemorrhage or CT of head and no evidence of peripheral hemorrhage or recent CVA: Yes. Consent for thrombolytic therapy: Yes. ED course: On reassessment patient with more coherent speech however does appear to be slurred per family in the room. Patient does have pneumocephalus per radiology. I discussed these results with Dr. Lal, neurology, absence of trauma, no intracranial brain bleed, we decided to proceed with tenecteplase. I discussed the risk and benefits and family was agreeable. TNK given, patient without any absolute contraindication. Will obtain rest of lab work and admit for TNK monitoring.. 09:58 ED course: EKG independently reviewed and interpreted by me, shows normal sinus rhythm, ec2 rate of 78, no acute ST segment elevations, intervals are nonconcerning, first-degree AV block noted.. 10:13 ED course: On reassessment patient is well-appearing and in no acute distress. Patient ec2 with some mild improvement after tenecteplase. 10:25 ED course: Metabolic profile shows renal dysfunction, LFTs are unremarkable, troponin ec2 within normal ranges. Will admit for further stroke workup. Discussed case with hospitalist who agrees accept patient for admission. . 12/15 09:04 Order name: Basic Metabolic Panel; Complete Time: 10:25 ec2 12/15 09:04 Order name: CBC with Diff; Complete Time: 10:02 ec2 12/15 09:04 Order name: Hepatic Function; Complete Time: 10:25 ec2 12/15 09:04 Order name: High Sensitivity Troponin; Complete Time: 10:25 ec2 12/15 09:04 Order name: Protime (+inr); Complete Time: 09: ec2 12/15 09:04 Order name: Ptt, Activated; Complete Time: : ec2 12/15 09:04 Order name: UDS 2 12/15 09:04 Order name: AMMONIA; Complete Time: 10:28 ec2 12/15 09:07 Order name: UAM 2 12/15 09:23 Order name: CBC Smear Scan; Complete Time: 10:02 EDPR 12/15 09:33 Order name: Glucose, Ancillary Testing; Complete Time: 09:34 EDMS 12/15 10:33 Order name: Anti-Thrombin III Activity EDMS 12/15 10:33 Order name: C-ANCA Anti-Proteinase 3 EDMS 12/15 10:33 Order name: Cardiolipin Antibodies G,M EDMS 12/15 10:33 Order name: Factor V Leiden Mutation EDMS 12/15 10:33 Order name: Homocysteine EDPR 12/15 10:33 Order name: Miscellaneous Test Lab EDPR 12/15 10:33 Order name: P-ANCA Anti-Myeloperoxidase Ab EDMS 12/15 10:33 Order name: Protein C Antigen EDMS 12/15 10:33 Order name: Protein Electo w/M Trey Serum EDMS 12/15 10:33 Order name: Protein S (Total EDMS 12/15 10:33 Order name: PROTHROMBIN GENE ANALYSIS (F2) EDMS 12/15 10:33 Order name: RPR EDPR 12/15 10:33 Order name: Vitamin B12 Level EDMS 12/15 10:33 Order name: Vitamin D, 25 (OH), TOTAL EDPR 12/15 09:04 Order name: CT Neck Angio; Complete Time: : 2 12/15 09:04 Order name: CT Stroke Brain w/o Contrast; Complete Time: 09: ec2 12/15 09:04 Order name: Stroke CXR 1 View 2 12/15 09:12 Order name: Head angio; Complete Time: 09:31 EDMS 12/15 10:33 Order name: Echo with Doppler EDMS 12/15 10:33 Order name: Chest Pa And Lat (2 Views) EDMS 12/15 10:33 Order name: CONS Physician Consult EDPR 12/15 10:33 Order name: IRF Screen EDMS 12/15 10:33 Order name: Physical Therapy Consult [facility] 12/15 10:33 Order name: Speech Therapy Consult [facility] 12/15 10:33 Order name: EKG Electrocardiogram [facility] 12/15 09:04 Order name: Accucheck; Complete Time: 09:56 ec2 12/15 09:04 Order name: Cardiac monitoring; Complete Time: 09:37 ec2 12/15 09:04 Order name: EKG - Nurse/Tech; Complete Time: 09:37 ec2 12/15 09:04 Order name: IV Saline Lock; Complete Time: 09:37 ec2 12/15 09:04 Order name: Labs collected and sent; Complete Time: 09:56 ec2 12/15 09:04 Order name: NPO; Complete Time: 09:37 ec2 12/15 09:04 Order name: O2 Per Protocol; Complete Time: 09:37 ec2 12/15 09:04 Order name: O2 Sat Monitoring; Complete Time: 09:37 ec2 12/15 09:04 Order name: Stroke Swallow Screen; Complete Time: 09:56 ec2 12/15 09:25 Order name: Misc. Order: recollect light green. dark green never sent; Complete Time: sb4 09:56 Administered Medications: 09:45 Drug: TNK FOR STROKE - Tenecteplase IV (Administer 10 ml NS flush BEFORE and ap3 AFTER tenecteplase) 0.25 mg/kg IV at per protocol once; MAX DOSE 25 mg, IVP over 5 seconds {Co-Signature: ld1 (Suzanna Ritchie RN).} Route: IV; Rate: per protocol; Site: right forearm; 10:20 Drug: metoCLOPramide IVP 10 mg IVP once; over 1 to 2 minutes Route: IVP; Site: right ap3 forearm; Disposition Summary: 12/16/23 10:25 Hospitalization Ordered Notes: Hospitalization Status: Inpatient Admission ec2 Provider: Tatiana Balderrama Location: Intensive Care Unit ec2 Condition: Stable ec2 Problem: new ec2 Symptoms: have improved ec2 Bed/Room Type: Standard ec2 Room Assignment: 4-(12/16/23 10:37) bd Diagnosis - Slurred speech ec2 - Weakness ec2 Forms: - Medication Reconciliation Form ec2 - SBAR form ec2 - Leadership Thank You Letter ec2 Critical care time excluding procedures: 10:06 Critical care time: Bedside Care: 30 minutes, Consultation: 15 minutes. Total time: 45 ec2 minutes NIH Stroke Scale - NIH Stroke Score Date: 12/16/2023 Time: 10:03 Total Score = 2 10. Dysarthria (speech clarity - read or repeat words) - 1(Mild to Moderate) 11. Extinction and Inattention (visual/tactile/auditory/spatial/personal) - 0(No abnormality) 1a. Level of Consciousness (LOC) - 0(Alert) 1b. Level of Consciousness (LOC) (Month \T\ Age) - 0(Both) 1c. LOC Commands (Open \T\ Closes Eyes/Experimental Physicist) - 0(Both) 2. Best Gaze (Lateral Gaze Paresis) - 0(Normal) 3. Visual Field Loss - 0(No visual loss) 4. Facial Palsy - 0(Normal) 5a. Left Arm: Motor (10-second hold) - 0(No drift) 5b. Right Arm: Motor (10-second hold) - 0(No drift) 6a. Left Leg: Motor (5-second hold - always test supine) - 0(No drift) 6b. Right Leg: Motor (5-second hold - always test supine) - 0(No drift) 7. Limb Ataxia (finger/nose \T\ heel/langley - test with eyes open) - 0(Absent) 8. Sensory Loss (pinprick arms/legs/face) - 1(Mild to moderate loss) 9. Best Language: Aphasia (description/naming/reading) - 0(No aphasia) Initials: es3 NIH Stroke Scale - NIH Stroke Score Date: 12/16/2023 Time: 10:13 Total Score = 2 10. Dysarthria (speech clarity - read or repeat words) - 1(Mild to Moderate) 11. Extinction and Inattention (visual/tactile/auditory/spatial/personal) - 0(No abnormality) 1a. Level of Consciousness (LOC) - 0(Alert) 1b. Level of Consciousness (LOC) (Month \T\ Age) - 0(Both) 1c. LOC Commands (Open \T\ Closes Eyes/Experimental Physicist) - 0(Both) 2. Best Gaze (Lateral Gaze Paresis) - 0(Normal) 3. Visual Field Loss - 0(No visual loss) 4. Facial Palsy - 0(Normal) 5a. Left Arm: Motor (10-second hold) - 0(No drift) 5b. Right Arm: Motor (10-second hold) - 0(No drift) 6a. Left Leg: Motor (5-second hold - always test supine) - 0(No drift) 6b. Right Leg: Motor (5-second hold - always test supine) - 0(No drift) 7. Limb Ataxia (finger/nose \T\ heel/langley - test with eyes open) - 0(Absent) 8. Sensory Loss (pinprick arms/legs/face) - 1(Mild to moderate loss) 9. Best Language: Aphasia (description/naming/reading) - 0(No aphasia) Initials: ec2 Signatures: Dispatcher [employer] EDMS Shanna Deng Lee, TIRE VULCANIZER-C TIRE VULCANIZER-Cla1 Sofia Christie RN RN ap3 Suzanna Ritchie, TIFFANIE MORENO ld1 Mikki Garcia RN RN kb3 Laurel Campo PA-C PA-C sb4 Osorio Palmer MD MD ec2 Suzanna Ritchie RN ld1 Corrections: (The following items were deleted from the chart) 09:05 09:04 BASIC METABOLIC PANEL+C.LAB.BRZ ordered. EDMS EDMS 09:05 09:04 CBC+H.LAB.BRZ ordered. EDMS EDMS 09:05 09:04 HEPATIC FUNCTION+C.LAB.BRZ ordered. EDMS EDMS 09:05 09:04 Troponin High Sensitivity+C.LAB.BRZ ordered. EDMS EDMS 09:05 09:04 PROTIME (+INR)+COAG.LAB.BRZ ordered. EDMS EDMS 09:05 09:04 PTT, ACTIVATED+COAG.LAB.BRZ ordered. EDMS EDMS 09:05 09:04 URINE DRUG SCREEN+UC.LAB.BRZ ordered. EDMS EDMS 09:05 09:04 AMMONIA+C.LAB.BRZ ordered. EDMS EDMS 09:05 09:05 Neck Angio+CT.RAD.BRZ ordered. EDMS EDMS 09:05 09:05 CT-STROKE BRAIN W/O CONTRAST+CT.RAD.BRZ ordered. EDMS EDMS 09:05 09:05 Chest Single View+RAD.RAD.BRZ ordered. EDMS EDMS 09:08 09:08 Urinalysis W/Microscopic+U.LAB.BRZ ordered. EDMS EDMS 10:32 10:32 MR STROKE PROTOCOL+MRI.RAD.BRZ ordered. EDMS EDMS 10:37 10:25 ec2 bd 10:47 09:07 Prather ordered. ec2 ap3
--- NOTE | 2023-12-16 10:56 | RAD REPORT ---
EXAM DESCRIPTION: RADChest Single View12/16/2023 10:22 am CLINICAL HISTORY: stroke aler COMPARISON: Chest Single View dated 03/27/2022 TECHNIQUE: Portable AP view of the chest. FINDINGS: Decreased inspiratory effort limits evaluation. Right basilar atelectasis. No pneumothora x or effusion. The cardiomediastinal contours are unremarkable. IMPRESSION: No acute cardiopulmonary process.
[2023-12-16 11:11] LABS: RPR Titer ND
[2023-12-16 12:34] VITALS: O2SAT 100; BMI 26.2
--- NOTE | 2023-12-16 12:34 | RAD REPORT ---
EXAM DESCRIPTION: MRI - Brain Wo Cont - 12/16/2023 12:01 pm CLINICAL HISTORY: STROKE ALERT COMPARISON: Head CT and CT angiogram of earlier the same day TECHNIQUE: Multiplanar multisequence MRI of the brain performed without IV contrast. FINDINGS: No evidence of acute infarct or other diffusion signal abnormality. No evidence of acute intracranial hemorrhage or abnormal extra-axial fluid collections. Mild diffuse parenchymal volume loss. Ventricular caliber otherwise within normal for age. Midline st ructures are unremarkable. Mild periventricular and deep white matter T2/FLAIR hyperintensities, nonspecific, but suggestive of chronic small vessel ischemic changes. No mass effect or midline shift. Major vascular flow voids are preserved. Mastoid air cells show patchy opacification bilaterally. Opacification within the right sphenoid sinu s IMPRESSION: No acute intracranial process. No evidence of ventriculomegaly or mass effect. Mild periventricular and deep white matter T2 hyperintensities, nonspecific, but suggest chronic smal l vessel ischemic changes.
[2023-12-16] MEDS: NA CHLORIDE 0.9% 1,000 ML IV SCH (15:46)
[2023-12-16] MEDS ORDERED: NITROGLYCERIN 0.4 MG/TAB SL PRN (19:31)
[2023-12-17 05:22] LABS: Absolute Eosinophils 0.1 K/uL (0-0.5); Absolute Lymphocytes (CBC) 1.7 K/uL (0.7-4.9); Absolute Monocytes 0.7 K/uL (0.1-1.3); Absolute Neutrophil 5.5 K/uL (1.8-8.0); Basophils % 0.3 % (0-1.3); Eosinophils % 1.4 % (0-4.4); Hematocrit 33.5 % (39.6-49.0); Hemoglobin 11.1 g/dL (13.6-17.9); Lymphocytes % 20.9 % (15.3-44.8); MCH 33.8 pg (27.0-35.0); MCHC 33.2 g/dL (32.0-36.0); MCV 101.7 fL (80-100); MPV 9.2 fL (7.6-11.3); Monocytes % 9.2 % (3.3-12.3); Nucleated Red Blood Cells % 0.1 % (0-0); Platelets 176 thou/uL (152-406); RBC Red Blood Cell Count 3.29 M/uL (4.33-5.43); Red Cell Distribution Width 13.1 % (12.1-15.2)
[2023-12-17 05:33] LABS: Neutrophils % 68.2 % (41.7-73.7)
[2023-12-17 05:42] LABS: Anion Gap 8.5 mEq/L (5.0-15.0); Potassium 3.5 mEq/L (3.5-5.1)
[2023-12-17] MEDS: NA CHLORIDE 0.9% 1,000 ML ONE (05:51)
[2023-12-17] MEDS: PANTOPRAZOLE 40MG TABLET PO SCH (06:24)
[2023-12-17] MEDS: INSULIN REGULAR (HUMAN) 100 UNIT/ML SQ SCH (07:30)
--- NOTE | 2023-12-17 07:36 | RAD REPORT ---
EXAM DESCRIPTION: US - CP - 12/16/2023 11:55 pm CLINICAL HISTORY: stroke Headache, CVA symptomology COMPARISON: Neck Angio dated 12/16/2023; Ct Stroke Brain Wo Cont dated 12/16/2023; Head angio dated TECHNIQUE: Real-time sonographic evaluation of both carotid systems was performed. Doppler interroga tion was performed with waveform tracing bilaterally. FINDINGS: Normal high resistance waveforms are noted in both external carotid arteries. The common c arotid arteries and internal carotid arteries show normal low resistance waveforms. There is a moderate mixed plaque present involving both distal common carotid arteries as well as bot h proximal internal carotid arteries and carotid bulbs. . Peak systolic and end diastolic velocity va lues and the ICA/CCA ratios are in the non-hemodynamically significant range. Antegrade flow seen in both vertebral arteries. IMPRESSION: Moderate mixed plaque is present in both proximal internal carotid arteries. No evidence of a hemodynamically significant stenosis.
[2023-12-17] MEDS: CYANOCOBALAMIN 1,000 MCG TAB PO SCH (08:22)
[2023-12-17] MEDS: METOPROLOL TAR 25 MG TAB PO SCH (08:22)
[2023-12-17] MEDS: ISOSORBIDE MONO SR 30 MG TAB PO SCH (08:22)
[2023-12-17] MEDS: ROSUVASTATIN 10 MG TAB PO SCH (08:22)
--- NOTE | 2023-12-17 08:40 | HP ---
Date of Admission: 12/16/2023 Chief Complaint: Weakness of right arm and slurred speech. History Of Present Illness: This is an 83-year-old very pleasant male patient with multiple comorbid ities, who lives at home with his , was sitting at the dining table this morning and was in another room and while the patient was trying to reach to grab something using his right hand, he sohan lized that his right hand was weak and he lost his coordination of movement with his right hand and randy gracia had trouble picking up something using his right hand. So, he immediately called his who came over there and realized that the patient's speech was also slurred and the patient was having profus e sweating and she immediately called 911 and EMS arrived at his house. His blood sugar was normal a nd he was transported to emergency room with this stroke-like symptoms. After he arrived in our [facility] room, he was evaluated and received TNK therapy with resolution of his symptoms completely and the patient was admitted to intensive care unit. Emergency room provider called me with all these de tails and when I saw the patient this evening, his , son, and daughter were present at bedside an d they provided all these details as well. The patient denies any headache. No visual complaints. No nausea, vomiting. No trouble swallowing and he has passed a bedside swallowing evaluation after h basil was admitted to ICU. Denies any tingling, numbness of hands or legs or any weakness of extremities . Denies any palpitation. Allergies: TO LISINOPRIL CAUSING COUGH. Medications: He takes aspirin 81 mg daily, clopidogrel 75 mg daily, Nexium 40 mg daily, TriCor 145 m g daily, rosuvastatin 20 mg daily, isosorbide mononitrate 60 mg daily, valsartan/HCTZ 160/12.5 one ta blet daily, metformin 850 mg 2 times a day, metoprolol succinate 25 mg daily, ranolazine 1000 mg 2 ti mes a day, and Januvia 100 mg daily. Review of Systems: BIOLOGY LECTURER: As mentioned above. All other systems reviewed and negative. Past Surgical History: Significant for tonsillectomy, coronary artery stent placement in 2010, then in 2019, and had TAVR surgery in 2019. Family History: Father of pancreatic cancer. Brother had coronary artery disease. Social History: Negative for smoking and alcohol use. Past Medical History: Significant for coronary artery disease, type 2 diabetes mellitus, hypertensio n, mixed hyperlipidemia, history of myocardial infarction in 2019, gastroesophageal reflux disease, b enign prostatic hypertrophy, and osteoarthritis at multiple sites. Physical Examination: Vital Signs: Temperature 97.6, pulse 78, respiratory rate 18, blood pressure 137/88, oxygen saturati on 98% on room air. Height 5 feet 7 inches, weight 167 pounds. General: Awake, alert, oriented, not in distress. HEENT: Head atraumatic, normocephalic. Conjunctivae nonerythematous. Sclerae white. Mouth, no thr ush or edema noted. Ears/Nose, no mass, lesion, discharge noted. Neck: Supple. No JVD, lymph nodes, bruit, thyromegaly noted. Lungs: Bilateral good equal air entry. Clear to auscultation. No rhonchi. No rales. Heart: Normal heart sounds, no murmur or gallop. Abdomen: Soft, bowel sounds normal. No guarding, rigidity, tenderness, mass, hepatosplenomegaly, dis tention, or bruit noted. Extremities: No leg edema. No calf tenderness. Skin: No rash, ulcer, cellulitis. Lymphatics: No lymph node enlargement in neck, supraclavicular, infraclavicular region. Neuro: No focal neurological deficit. Chest: Unremarkable. External Genitalia: Deferred. Rectal: Deferred. Laboratory Data: White count 8.2, hemoglobin 10.9, platelets 176. Sodium 138, potassium 4.1, chlori de 108, bicarb 24, BUN 28, creatinine 1.49, glucose 163. Liver function tests unremarkable. Chest x -ray was negative for any acute cardiopulmonary changes. CAT scan of the head done initially in the emergency room was negative for any acute intracranial changes. CT angiogram of intracranial arterie s and neck was negative for any significant stenotic lesion. An MRI of brain done subsequently today was negative also for any acute intracranial changes. EKG has shown normal sinus rhythm. Impression: 1.Stroke. 2.Coronary artery disease. 3.Hypertension. 4.Mixed hyperlipidemia. 5.Type 2 diabetes mellitus. 6.Gastroesophageal reflux disease. 7.Anemia. 8.Osteoarthritis, multiple sites. 9.Acute kidney injury. Plan: We will go ahead and admit the patient to hospital to intensive care unit for further evaluati on and management of this problem. The patient is appropriate for inpatient and is expected to spend 2 midnights in hospital. The patient has received thrombolytic therapy and has responded very well, has recovered completely and is back to his baseline. There is no focal neurological deficit when I examined him. We will continue diet per order. Neurology consultation has been requested from Dr. Lal and we will have Physical Therapy evaluate him also. The patient already takes aspirin and Plavix as a dual anti-platelet therapy on outpatient basis for his cardiovascular problems and we tony l not be able to add anything else on top of that at least at this point in my opinion and we will wa it for neurologist's recommendation on this. We will start anti-platelet therapy sometime tomorrow. Carotid Doppler and echocardiogram will be ordered. For hypertension, we will go ahead and monitor blood pressure and consider antihypertensive medication without dropping blood pressure too low. For his gastroesophageal reflux disease, we will continue his proton pump inhibitor. For his coronary a rtery disease, he takes isosorbide mononitrate 60 mg daily, but we will only give 30 mg daily right n ow and the patient uses nitroglycerin at home on a p.r.n. basis for chest pain which he uses rather f requently as per his healthcare social worker and we will order that as well for him. For hyperlipidemia, we tony hair go ahead and give high dose statin therapy per order and we will get fasting lipid profile and hemo globin A1c tomorrow. Total time spent 90 minutes that includes review of current hospital emergency room records, communication with ER physicians, review of last 2 office visit records including one f rom this month as well as prior visit record from September 18, 2023, and performing evaluation and management for this admission. Details and plan of treatment discussed with the patient and his family members. TRENT/MODL Voice ID: [id number]
[2023-12-17] MEDS ORDERED: ROSUVASTATIN 10 MG TAB PO SCH (09:00)
--- NOTE | 2023-12-17 09:22 | RAD REPORT ---
EXAM DESCRIPTION: CT - Head Brain Wo Cont - 12/17/2023 9:08 am CLINICAL HISTORY: repeat s/p TNK @ 0900 Headache, drowsiness, CVA symptomology COMPARISON: Head angio dated 12/16/2023; Ct Stroke Brain Wo Cont dated 12/16/2023; Brain Wo Cont dated 12/16/2023 TECHNIQUE: All CT scans are performed using dose optimization technique as appropriate and may inclu de automated exposure control or mA/KV adjustment according to patient size. FINDINGS: No intracranial hemorrhage, hydrocephalus or extra-axial fluid collection.Mild generalized brain atrophy noted.No areas of brain edema or evidence of midline shift. Chronic right sphenoid sinusitis. Paranasal sinuses and mastoids otherwise clear. The calvarium is in tact. IMPRESSION: No acute intracranial abnormality.
--- NOTE | 2023-12-17 09:23 | RAD REPORT ---
EXAM DESCRIPTION: RAD - Chest Pa And Lat (2 Views) - 12/17/2023 9:16 am CLINICAL HISTORY: Stroke Chest pain. COMPARISON: Chest Single View dated 12/16/2023; Chest Single View dated 03/27/2022 FINDINGS: The lungs are clear. The heart is mildly prominent in size with a tortuous thoracic aorta. No displaced fractures. Aortic valve replacement. IMPRESSION: No acute or concerning finding suspected.
[2023-12-17 12:12] VITALS: BP 107/54; TEMP 97.5
--- NOTE | 2023-12-17 13:47 | EKG ---
Test Date: 2023-12-16 Test Time: 09:18:08 Medicare Sales Representative: YISSEL MEASUREMENT RESULTS: Intervals: Rate: 78 UT: 254 QRSD: 96 QT: 418 QTc: 476 [place]: P: 71 UT: 254 QRS: -60 T: 76 INTERPRETIVE STATEMENTS: Sinus rhythm with 1st degree AV block Left axis deviation Inferior-posterior infarct, age undetermined Anterolateral infarct, age undetermined Abnormal ECG Compared to ECG 03/27/2022 08:32:51 First degree AV block now present Sinus tachycardia no longer present Myocardial infarct finding still present Electronically Signed On 12-17-23 13:45:58 CDT by Sawyer Stevens
[2023-12-17] MEDS: ASPIRIN EC 81 MG TAB PO ONE (14:46)
[2023-12-17] MEDS: CLOPIDOGREL 75 MG TABLET PO ONE (14:46)
[2023-12-17 23:06] LABS: RPR (Rapid Plasma Reagin) NON-REACT (NON-REACT)
--- NOTE | 2023-12-18 01:02 | CON ---
Date of Consultation: 12/17/2023 Chief Complaint/reason For Consultation: Stroke or TIA. History Of Present Illness: Mr. Dawson is an 83-year-old patient with diabetes mellitus, hypertensio n, dyslipidemia, who was reportedly taking his aspirin and Plavix at home, but may not be hydrating w dena. While sitting at the dining room table in the morning of 12/16/2023, he started to reach for it em using his right hand, realized his right hand was weak, lost his coordination and movement of the hand and had trouble picking things up. I did call his who noted he had slurred speech, difficu lty with communication and he was profusely sweating. He was brought by EMS where he was evaluated i n the emergency room for stroke and code stroke called. He came within the window for TNK and receiv ed intravenous TNKs and his symptoms resolved completely. He was followed in the ICU for his monitor ing and additional workup. Had no additional events while in the hospital. His brain MRI showed no acute intracranial processes. No evidence of a ventriculomegaly or mass effect. There was mild smal l vessel ischemic disease, T2 hyperintensities noted again suggestive of small vessel ischemic diseas e. His CT angiogram study of the head showed no evidence of large vessel occlusion or flow-limiting stenosis. CT angiogram studies of the neck showed no significant flow abnormalities and neck vessels . His carotid artery ultrasound study showed moderate mixed plaque in both proximal internal carotid arteries, but no evidence of hemodynamically significant stenosis. His repeat CT scan after 24 hour s receiving the TNKs showed no hemorrhagic findings and no abnormalities identified. His blood work did show mild anemia around 10.9 to 11.1, normal white blood cell count, normal platelets. INR noe l at 1.07. He does have multiple stroke labs pending. He had normal sodium and potassium, slightly elevated chloride. Blood sugars range up to 210. Hemoglobin A1c was 5.8, calcium 8.0. Urinalysis u nremarkable. Tox screen was pending and stroke pending as well. He did have medications continued including Plavix, aspirin, hypertensive medications, Crestor as well. Note: He was not gi chelsea aspirin and Plavix for 24 hours after receiving TNKs. Past Medical History: As noted above. Allergies: NO KNOWN DRUG ALLERGIES. Current Medications: Nitroglycerin 0.4 mg sublingual as needed for chest pain rating mild to moderat e, Protonix 40 mg daily, Ranexa 1000 mg twice daily, Crestor 40 mg at bedtime, Imdur 30 mg daily, vit balderrama B12 1000 mcg daily, Plavix 75 mg daily, aspirin 81 mg daily. Family History: Noncontributory. Social History: No alcohol, tobacco, or IV drug use. Review of Systems: Denies any recent fevers or chills. Mild myalgias, arthralgias. No rash, headache, weight change. No psychiatric complaints. Physical Examination: Vital Signs: Blood pressure 107/54, pulse 79, respiratory rate 20, temperature 97.5, oxygen saturati on 100%. General: Mr. Dawson is resting in bed. HEENT: He is normocephalic, atraumatic. Sclerae anicteric. Oropharynx pink and moist. Neck: Supple. Chest: Clear. Heart: Regular. Extremities: Show no clubbing, cyanosis, or edema. Neurologic: He has no focal cranial nerve, motor, coordination, sensory, or reflex abnormalities. The patient since he was back to a normal level of functioning without any deficits was discharged af ter his monitoring in ICU was complete and his repeat CT scan showed no hemorrhagic change. Assessment: Mr. Dawson is an 83-year-old patient with multiple stroke risk factors including hyperte nsion, diabetes mellitus, dyslipidemia, history of coronary artery disease, and multiple vessel stent ing in the heart. He has had possibly stroke with resolution after TNKs versus transient ischemic at tack. Plan: We will continue aspirin, Plavix, folic acid, statin. Continue with antihypertensive medicati ons. The patient was instructed on diet and exercise modifications to reduce stroke risk. After dis charge, he may follow up in Dr. Lal's clinic within the month. Of course, follow up with Dr. Balderrama, his [facility] physician. SUJIT/JUANITO Voice ID: [id number] Report ID: [id number]
--- NOTE | 2023-12-18 08:29 | ECHO ---
HEIGHT: 5 ft 7 in WEIGHT: 167 lb 0 oz DATE OF STUDY: 12/17/[address]: Osorio Palmer 2-DIMENSIONAL: YES M.MODE: YES DOPPLER: YES COLOR FLOW: YES TDS: PORTABLE: DEFINITY: BUBBLE STUDY: DIAGNOSIS: STROKE CARDIAC HISTORY: CATHERIZATION: SURGERY: PROSTHETIC VALVE: PACEMAKER: MEASUREMENTS (cm) DIASTOLIC (NORMALS) SYSTOLIC (NORMALS) IVSd 1.1 (0.6-1.2) LA Diam 3.6 (1.9-4.0) LVEF 60% LVIDd 3.8 (3.5-5.7) LVIDs 2.6 (2.0-3.5) %FS 31% LVPWd 1.0 (0.6-1.2) Ao Diam 3.2 (2.0-3.7) 2 DIMENSIONAL ASSESSMENT: RIGHT ATRIUM: NORMAL LEFT ATRIUM: NORMAL RIGHT VENTRICLE: NORMAL LEFT VENTRICLE: NORMAL TRICUSPID VALVE: MILD TRICUSPID REGURGITATION MITRAL VALVE: 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 NORMAL LEFT VENTRICULAR EJECTION FRACTION 60-65% WITH NORMAL WALL MOTION 2. DIASTOLIC DYSFUNCTION 3. MILD TRICUSPID REGURGITATION/ MITRAL REGURGITATION 4. MILD AORTIC INSUFFICIENCY TECHNOLOGIST: DERRELL REDMOND
[2023-12-18 17:47] LABS: Homocysteine 14.1 umol/L (<11.4)
[2023-12-18 22:11] LABS: Abnormal Protein Band 1 0.5 g/dL; Albumin, (SPE) 3.4 g/dL (3.8-4.8); Alpha-1-Globulins 0.2 g/dL (0.2-0.3); Alpha-2-Globulins 0.9 g/dL (0.5-0.9); Beta 1 Globulin 0.4 g/dL (0.4-0.6); Gamma Globulins 0.8 g/dL (0.8-1.7); INTERPRETATION REPORT
[2023-12-19 11:13] LABS: Protein C Antigen 118 % normal (70-140)
[2023-12-20 02:09] LABS: Phosphatidylser & Prothrom IgG <9 U (<=30); Phosphatidylser & Prothrom IgM 13 U (<=30)
[2023-12-20 07:24] LABS: Anti-Thrombin III Activity 71 % normal (80-135)
--- NOTE | 2023-12-20 21:52 | DS ---
Laboratory Data: Upon admission, white count 8.2, hemoglobin 10.9, platelets 176. Repeat CBC on , white count 8, hemoglobin 11.1, platelets 176. For his chemistry on 12/17/2023, sodium 140, potassium 3.5, chloride 110, bicarb 25, BUN 21, creatinine 1.21, glucose 121. His hemoglobin A1c is 5.8. Upon admission, creatinine was 1.49. Lipid profile shows triglyceride 153, total cholesterol 135, LDL 73, HDL 31. Vitamin B12 level was low at 181. Carotid Doppler shows moderate mixed plaque in both proximal internal carotid arteries. No evidence of hemodynamically significant stenotic lesi on. Discharge Medications And Instructions: Continue all prior home medication except following changes: 1.Stop fenofibrate. 2.Stop rosuvastatin 20 mg dose. 3.Start rosuvastatin 40 mg take 1 tablet by mouth daily. 4.Start folic acid 1 mg tablet by mouth daily. 5.Start vitamin B12 [id number]-oni-[id number] 1000 mcg 1 tablet by mouth daily. 6.Follow up at my office next week. 7.Follow up with your cognos bi developer as soon as possible and have your cognos bi developer place 1 week long Holter monitor. 8.Make sure to take your aspirin 81 mg daily and clopidogrel 75 mg daily on regular basis. Hospital Course: This is an 83-year-old male patient, who came into emergency room with signs and sy mptoms of stroke. Please see dictated Donnell and Raheem for more information. The patient had some trouble wi th his speech and weakness of right hand with difficulty controlling his movement of his right hand. Ambulance was called and he was brought into emergency room after he was evaluated in the ER. The raheem sanchez received thrombolytic therapy with resolution of his symptoms. His CAT scan of the brain was negative for any acute changes in the emergency room and repeat CAT scan after 24 hours was also nega tive for any acute changes. MRI of the brain was negative for any acute changes. Neurology consulta tion was obtained from Dr. Lal, and Dr. Lal recommended for the patient to have 1 week long heart monitor to look for any kind of cardiac arrhythmia like atrial fibrillation as a diagnosis of such problem might change his treatment and all these details were discussed with the patient. The raheem sanchez has a cognos bi developer in [place] and he sees him on a regular basis, so he will follow up with hi s cognos bi developer. Echocardiogram done at our hospital shows . Overall, the patient's condit ion remained stable in ICU. He has recovered completely from his stroke symptoms. He is ambulating very well. Physical Therapy was consulted and the patient does not have any neurological deficit. T he patient was discharged to go home in stable condition with above-mentioned medications and instruc tions. Final Diagnoses: 1.Stroke. 2.Bilateral carotid artery stenosis. 3.Coronary artery disease. 4.Hypertension. 5.Mixed hyperlipidemia. 6.Gastroesophageal reflux disease. 7.Type 2 diabetes mellitus. 8.Osteoarthritis, multiple sites. 9.Benign prostatic hypertrophy. 10.Peripheral vascular disease. 11.Chronic anti-platelet therapy. 12.Anemia, unspecified. Total time spent today 45 minutes. TRENT/JUANITO Voice ID: [id number] Report ID: [id number]
[2023-12-23 01:15] LABS: Anti-Cardiolipin IgG Antibody <2.0 GPL-U/mL (<20.0); Anti-Cardiolipin IgM Antibody <2.0 MPL-U/mL (<20.0); Beta-2-Glycoprotein I IgA <2.0 U/mL (<20.0); Beta-2-Glycoprotein I IgG <2.0 U/mL (<20.0); Beta-2-Glycoprotein I IgM <2.0 U/mL (<20.0); C-ANCA Anti-Proteinase 3 <1.0 AI (<1.0); P-ANCA Anti-Myeloperoxidase Ab <1.0 AI (<1.0)
== END 2023-12-17 14:53 | disposition home or self-care (01) | DRG 62 ==
LOC: ER 08:58 → ERHOLD 10:29 → 3RD-ICU 10:46
PROVIDERS: ADMIT Internal Medicine; ATTEND Internal Medicine
DX: I63.9 Cerebral infarction, unspecified (principal); N17.9 Acute kidney failure, unspecified; D64.9 Anemia, unspecified; I65.23 Occlusion and stenosis of bilateral carotid arteries; E11.51 Type 2 diabetes mellitus with diabetic peripheral angiopathy without gangrene; E78.2 Mixed hyperlipidemia; I44.0 Atrioventricular block, first degree; M19.09 Primary osteoarthritis, other specified site; N40.0 Benign prostatic hyperplasia without lower urinary tract symptoms; G93.89 Other specified disorders of brain; K21.9 Gastro-esophageal reflux disease without esophagitis; I25.10 Atherosclerotic heart disease of native coronary artery without angina pectoris; I25.2 Old myocardial infarction; R41.0 Disorientation, unspecified; R47.81 Slurred speech; R29.702 NIHSS score 2; Z95.5 Presence of coronary angioplasty implant and graft; Z79.82 Long term (current) use of aspirin; Z79.02 Long term (current) use of antithrombotics/antiplatelets; Z79.84 Long term (current) use of oral hypoglycemic drugs; Z79.899 Other long term (current) drug therapy
CPT/HCPCS: 36415; 70450; 70496; 70498; 70551; 71045; 71046; 80048; 80061; 80076; 81240; 81241; 82140; 82306; 82607; 82947; 83036; 83090; 83516; 84165; 84484; 85025; 85300; 85302; 85305; 85306; 85610; 85730; 86021; 86146; 86147; 86592; 92523; 92610; 92977; 93005; 93306; 93880; 96374; 96375; 97116; 97161; 97530; 99291; J2765; J3101; J7030; Q9967

== ENCOUNTER 2024-05-03 23:44 | Emergency (ER) | payer OTHER ==
[2024-05-03] MEDS ORDERED: FLUORESCEIN SODIUM 1 MG/WRAP ONE (23:48)
[2024-05-03] MEDS ORDERED: TETRACAINE HCL 0.5% 4ML OPTH ONE (23:48)
--- NOTE | 2024-05-04 00:07 | EDPHYS ---
Physician Documentation [facility] Name: Gerardo Jeters[place] Age: 84 yrs Sex: Male : 1940 Arrival Date: 05/03/2024 Time: 23:44 Bed IW1 Private MD: ED Physician Dave Stark HPI: 05/04 00:03 This 84 yrs old Male presents to ER via Unassigned with complaints of Drainage From kb Eye, Redness of Eye - Left. 00:03 Pt is an 84 year old male who presents for redness and discharge from left eye that kb started last night. Also reports he feels like his left ear is "clogged" because he can't hear really well from that side. . Historical: - Allergies: 00:09 No Known Allergies; ha1 - PMHx: 00:09 diabetes mellitus; STEMI; ha1 - PSHx: 00:09 6 cardiac stents; ha1 - Immunization history:: Adult Immunizations up to date. - Infectious Disease History:: Denies. - Social history:: Smoking status: Patient denies any tobacco usage or history of. ROS: 00:05 Constitutional: As per HPI kb Exam: 00:03 Constitutional: This is a well developed, well nourished patient who is awake, alert, kb and in no acute distress. Head/Face: Normocephalic, atraumatic. Cardiovascular: Regular rate Respiratory: Respirations even and unlabored. No increased work of breathing. Talking in full sentences Skin: Warm, dry with normal turgor. Normal color. MS/ Extremity: Pulses equal, no cyanosis. Neurovascular intact. Full, normal range of motion. Neuro: Awake and alert, GCS 15, oriented to person, place, time, and situation. 00:03 Eyes: Periorbital structures: appear normal, Pupils: equal, round, and reactive to light and accomodation, Extraocular movements: intact throughout, Conjunctiva: chemosis, that is mild, that is moderate, in left eye, 00:03 ENT: External ear(s): are unremarkable, Ear canal(s): are normal, TM's: bulging, on the kb left, erythema, that is moderate, on the left, Vital Signs: 00:07 BP 168 / 91; Pulse 94; Resp 18 S; Temp 98(T); Pulse Ox 95% on R/A; Weight 77.56 kg; ha1 Height 5 ft. 8 in. ; Pain 6/10; 00:07 Body Mass Index 26.00 (77.56 kg, 172.72 cm) ha1 00:07 Pain Scale: Adult ha1 MDM: 05/03 23:53 Medical Screening Exam initiated kb 05/04 00:05 Differential diagnosis: Corneal abrasion of Corneal ulcer of Foreign body in Acute kb iritis of Data reviewed: vital signs, nurses notes. Counseling: I had a detailed discussion with the patient and/or guardian regarding the historical points, exam findings, and any diagnostic results supporting the discharge/admit diagnosis, the need for outpatient follow up, an opthalmologist, a family practitioner, to return to the emergency department if symptoms worsen or persist or if there are any questions or concerns that arise at home. Administered Medications: 00:10 Drug: Amoxicillin-Clavulanate PO 875 mg PO once Route: PO; 1 00:18 Follow up: Response: No adverse reaction [facility] Disposition Summary: 05/04/24 00:06 Discharge Ordered Notes: Location: Home kb Condition: Stable kb Diagnosis - Otitis media, unspecified, left ear kb - Chemosis, left kb Followup: kb - With: Emergency Department - When: As needed - Reason: Worsening of condition Followup: kb - With: Private Physician - When: 2 - 3 days - Reason: Recheck today's complaints, Continuance of care, Re-evaluation by your physician Discharge Instructions: - Discharge Summary Sheet kb - Otitis Media, Adult, [id number] kb - Bacterial Conjunctivitis, Adult, [id number] kb Forms: - Medication Reconciliation Form kb - Antibiotic Education kb - Prescription Opioid Use kb - Patient Portal Instructions kb - Leadership Thank You Letter Prescriptions: - Amoxicillin 875 mg Oral Tablet - take 1 tablet ORAL route every 12 hours for 10 days; 20 tablet; Refills: 0, kb Product Selection Permitted - Vigamox 0.5 % Ophthalmic Drops - instill 1 drop OPHTHALMIC route every 8 hours for 7 days; 5 milliliter; kb Refills: 0, Product Selection Permitted Signatures: Liz De La O, DANIELLE ALMEIDA-Reva Fu RN RN ha1
[2024-05-04] MEDS ORDERED: AMOX/K CLAV 875 MG TAB ONE (00:16)
--- NOTE | 2024-05-04 00:20 | ER ---
Nurse's Notes [facility] Name: Gerardo Lerona Age: 84 yrs Sex: Male : 1940 Arrival Date: 05/03/2024 Time: 23:44 Bed IW1 Private MD: Diagnosis: Otitis media, unspecified, left ear;Chemosis, left Presentation: 05/04 00:07 Chief complaint: Patient states: sudden onset of left eye drainage and redness since ha1 yesterday. Coronavirus screen: Vaccine status: Patient reports being unvaccinated. Ebola Screen: No symptoms or risks identified at this time. Initial Sepsis Screen: Does the patient meet any 2 criteria? No. Patient's initial sepsis screen is negative. Does the patient have a suspected source of infection? No. Patient's initial sepsis screen is negative. Risk Assessment: Do you want to hurt yourself or someone else? Patient reports no desire to harm self or others. Onset of symptoms was May 04, 2024. 00:07 Method Of Arrival: Ambulatory ha1 00:07 Acuity: JONG 5 ha1 Triage Assessment: 00:09 General: Appears comfortable, Behavior is calm, cooperative. Pain: Complains of pain in ha1 left eye Pain does not radiate. Pain currently is 6 out of 10 on a pain scale. Quality of pain is described as aching, Pain began gradually. EENT: Eyes redness left eye. Neuro: Level of Consciousness is awake, alert, obeys commands, Oriented to person, place, time, situation. Cardiovascular: Capillary refill < 3 seconds Patient's skin is warm and dry. Respiratory: Airway is patent Trachea midline Respiratory effort is even, unlabored, Respiratory pattern is regular, symmetrical. GI: No signs and/or symptoms were reported involving the gastrointestinal system. : No signs and/or symptoms were reported regarding the genitourinary system. Derm: Skin is pink, warm \T\ dry. Historical: - Allergies: 00:09 No Known Allergies; ha1 - PMHx: 00:09 diabetes mellitus; STEMI; ha1 - PSHx: 00:09 6 cardiac stents; ha1 - Immunization history:: Adult Immunizations up to date. - Infectious Disease History:: Denies. - Social history:: Smoking status: Patient denies any tobacco usage or history of. Screenin:11 [facility] ED Fall Risk Assessment (Adult) History of falling in the last 3 months, ha1 including since admission No falls in past 3 months (0 pts) Confusion or Disorientation No (0 pts) Intoxicated or Sedated No (0 pts) Impaired Gait No (0 pts) Mobility Assist Device Used No (0 pt) Altered Elimination No (0 pt) Score/Fall Risk Level 0 - 2 = Low Risk Oriented to surroundings, Maintained a safe environment, Educated pt \T\ family on fall prevention, incl call for assistance when getting out of bed, Hourly rounding (assess needs \T\ fall precautionary measures) done. Abuse screen: Denies threats or abuse. Denies injuries from another. Nutritional screening: No deficits noted. Tuberculosis screening: No symptoms or risk factors identified. Vital Signs: 00:07 BP 168 / 91; Pulse 94; Resp 18 S; Temp 98(T); Pulse Ox 95% on R/A; Weight 77.56 kg; ha1 Height 5 ft. 8 in. ; Pain 6/10; 00:07 Body Mass Index 26.00 (77.56 kg, 172.72 cm) ha1 00:07 Pain Scale: Adult ha1 ED Course: 05/03 23:47 Patient arrived in ED. ra3 23:53 Liz De La O F[facility]-C [facility]. kb 23:53 Dave Stark MD is Attending Physician. kaz 05/04 00:09 Triage completed. ha1 00:12 Patient has correct armband on for positive identification. ha1 00:12 Arm band placed on right wrist. ha1 00:19 Provided Education on: medication administration . ha1 00:19 No provider procedures requiring assistance completed. Patient did not have IV access ha1 during this emergency room visit. Administered Medications: 00:10 Drug: Amoxicillin-Clavulanate PO 875 mg PO once Route: PO; ha1 00:18 Follow up: Response: No adverse reaction ha1 Medication: 00:12 VIS not applicable for this client. ha1 Outcome: 00:06 Discharge ordered by . kaz 00:19 Discharged to home ambulatory, with family, ha1 00:19 Condition: stable 00:19 Discharge instructions given to patient, Instructed on discharge instructions, follow up and referral plans. medication usage, Demonstrated understanding of instructions, follow-up care, medications, Prescriptions given X 1, 00:19 Patient left the ED. ha1 Signatures: Liz De La O, JUAN PABLO-C COMPUTER AIDED DESIGN DRAFTER-Reva Fu, RN RN ha1 Fabiana Stevenson 3
[2024-05-04 00:24] VITALS: BP 168/91; TEMP 98; O2SAT 95
== END 2024-05-04 00:19 | disposition home or self-care (01) ==
LOC: ER 23:44
DX: H66.92 Otitis media, unspecified, left ear (principal); H11.422 Conjunctival edema, left eye
CPT/HCPCS: 99283

== ENCOUNTER 2024-06-18 15:03 | Observation (INO) | payer OTHER ==
[2024-06-18] MEDS ORDERED: NA CHLORIDE 0.9% 500 ML ONE (15:51)
[2024-06-18] MEDS ORDERED: ONDANSETRON 4 MG/2 ML VIAL ONE (15:51)
[2024-06-18 16:18] LABS: Absolute Eosinophils 0.1 K/uL (0-0.5); Absolute Lymphocytes (CBC) 1.1 K/uL (0.7-4.9); Absolute Monocytes 0.6 K/uL (0.1-1.3); Absolute Neutrophil 6.1 K/uL (1.8-8.0); Basophils % 0.5 % (0-1.3); Eosinophils % 1.2 % (0-4.4); Hematocrit 34.2 % (39.6-49.0); Hemoglobin 11.5 g/dL (13.6-17.9); Lymphocytes % 14.3 % (15.3-44.8); MCH 33.1 pg (27.0-35.0); MCHC 33.6 g/dL (32.0-36.0); MCV 98.5 fL (80-100); MPV 9.3 fL (7.6-11.3); Monocytes % 7.8 % (3.3-12.3); Neutrophils % 76.2 % (41.7-73.7); Nucleated Red Blood Cells % 0.1 % (0-0); Platelets 147 thou/uL (152-406); RBC Red Blood Cell Count 3.47 M/uL (4.33-5.43); Red Cell Distribution Width 14.4 % (12.1-15.2)
[2024-06-18 16:35] LABS: Albumin/Globulin Ratio 0.9 (1.1-1.8); Anion Gap 12.3 mEq/L (5.0-15.0); Bilirubin Total 0.4 mg/dL (0.2-1.0); Globulin 3.5 g/dL (2.3-3.5); Protein, Total 6.5 g/dL (6.4-8.2)
[2024-06-18 16:36] LABS: Potassium 4.3 mEq/L (3.5-5.1)
--- NOTE | 2024-06-18 16:38 | RAD REPORT ---
EXAM: CT brain without contrast HISTORY: Headache. Weakness COMPARISON: November 2023 TECHNIQUE: Multiple contiguous axial images were obtained and a CT of the brain without contrast.. Sagittal and coronal reconstruction performed. Automated exposure control, adjustment of the mA and/or kV according to patient size, and/or iterative reconstruction. Unless otherwise specified, incidental f indings do not require dedicated imaging follow-up FINDINGS: An intracranial bleed is not seen Ventricles are normal caliber No extra-axial fluid collection noted No significant hypodensity within the brain. Mild cerebellar vermis atrophy. Mild cerebral atrophy No fluid within the visualized sinuses or mastoids noted. Chronic sphenoid sinusitis IMPRESSION: No acute intracranial abnormality noted. If the patient continues to have symptoms to suggest an acute intracranial abnormality then MRI of th e brain would be recommended.
[2024-06-18 16:43] LABS: SARS-CoV-2 Antigen CONTROL BLUE LINE VIS/BG OK; SARS-CoV-2 Antigen Rapid Res Negative (Negative)
--- NOTE | 2024-06-18 16:46 | RAD REPORT ---
EXAMINATION: CT ABDOMEN AND PELVIS WITH CONTRAST CLINICAL INDICATION: Abdominal pain TECHNIQUE: CT abdomen and pelvis was performed, after the administration of 100 cc Isovue-300.. Sagit christine and coronal reconstructions were obtained. One or more of the following dose reduction techniques were used: Automated exposure control, adjustment of the mA and kV according to patient si ze, and iterative reconstruction. Unless otherwise specified, incidental findings do not require dedicated imaging follow-up. [id number]. Dense oral contrast from a modified barium swallow is present wi thin portions of the bowel limiting evaluation somewhat. COMPARISON: .None FINDINGS: Liver, spleen, pancreas, adrenals and left kidney appear unremarkable. Small nonobstructing right renal calculus. No evidence of diverticulitis. Spondylosis lumbar spine. Apparent mild wall thickening transverse colon Small left inguinal hernia : IMPRESSION: Apparent mild wall thickening transverse colon. This probably is secondary to incomplete distention r ather than but should be correlated clinically.
--- NOTE | 2024-06-18 17:12 | EDPHYS ---
Physician Documentation [facility] Name: Gerardo [place] Age: 84 yrs Sex: Male : 1940 Arrival Date: 06/18/2024 Time: 15:03 Bed 17 Private MD: ED Physician Chas Seaman HPI: 06/18 15:16 This 84 yrs old Male presents to ER via Unassigned with complaints of rn nausea/vomiting/diarrhea. 15:16 The patient presents to the emergency department with nausea, vomiting, diarrhea. rn Onset: The symptoms/episode began/occurred this morning. Possible causes: unknown. The symptoms are aggravated by nothing. The symptoms are alleviated by nothing. Severity of symptoms: At their worst the symptoms were moderate in the emergency department the symptoms are unchanged. The patient has experienced a previous episode. The patient has not recently seen a physician. Patient reports nausea/vomiting/diarrhea, began this morning, has vomited approximately 6 times. No blood in stool or emesis. No fever or chills. UA reports normal vital signs. Patient denies any chest pain or abdominal pain.. Historical: - Allergies: 15:28 No Known Allergies; db - PMHx: 15:28 diabetes mellitus; STEMI; db - PSHx: 15:28 6 cardiac stents; db - Immunization history:: Adult Immunizations unknown. - Infectious Disease History:: Denies. - Family history:: not pertinent. - Social history:: Smoking status: Patient denies any tobacco usage or history of. - Hospitalizations: : No recent hospitalization is reported. ROS: 15:16 Constitutional: Negative for fever, chills, and weight loss, Cardiovascular: Negative rn for chest pain, palpitations, and edema, Respiratory: Negative for shortness of breath, cough, wheezing, and pleuritic chest pain, Abdomen/GI: Positive for nausea/vomiting/diarrhea : Negative for injury, bleeding, discharge, and swelling, MS/Extremity: Negative for injury and deformity, Skin: Negative for injury, rash, and discoloration, Neuro: Positive for generalized weakness Exam: 15:16 Constitutional: This is a well developed, well nourished patient who is awake, alert, rn and in no acute distress. ENT: Dry mucous membranes Cardiovascular: Regular rate and rhythm. No pulse deficits. Respiratory: No increased work of breathing, no retractions or nasal flaring. Abdomen/GI: Soft, non-tender MS/ Extremity: Pulses equal, no cyanosis. Neuro: Awake and alert, GCS 15 17:41 ECG was reviewed by the Attending Physician. 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 Data reviewed: vital signs, nurses notes, lab test result(s), radiologic studies, CT scan, and as a result, I will admit patient. Consideration of Admission/Observation Patient was admitted/placed on observation. Escalation of care including admission/observation considered. Counseling: I had a detailed discussion with the patient and/or guardian regarding the historical points, exam findings, and any diagnostic results supporting the discharge/admit diagnosis, lab results, radiology results, the need for further work-up and treatment in the hospital. Response to treatment: the patient's symptoms have markedly improved after treatment, and as a result, I will admit patient. ED course: Family member in room, agrees that after IV fluids patient is improving and strength and speech have improved. CT head is negative and NIH is [address] abdomen shows possible colitis. GI symptoms could be secondary to a mild colitis versus adverse effect of barium taken today. Will admit to Dr. Balderrama for further care. 06/18 15:14 Order name: CBC with Diff; Complete Time: 16:29 rn 06/18 15:14 Order name: CMP; Complete Time: 16:47 rn 06/18 15:14 Order name: Lipase; Complete Time: 16:47 rn 06/18 15:14 Order name: Urinalysis w/ reflexes rn 06/18 15:14 Order name: Flu; Complete Time: 16:47 rn 06/18 15:14 Order name: SARS-COV-2 Antigen Rapid; Complete Time: 16:47 rn 06/18 15:15 Order name: Stool Culture rn 06/18 18:06 Order name: CREATININE WHOLE BLOOD EDMS 06/18 15:14 Order name: CT Abd/Pelvis - IV Contrast Only; Complete Time: 16:47 rn 06/18 15:39 Order name: CT Head Brain wo Cont; Complete Time: 16:47 rn 06/18 15:14 Order name: IV Saline Lock; Complete Time: 15:53 rn 06/18 15:14 Order name: Labs collected and sent; Complete Time: 15:53 rn EC:41 Rate is 80 beats/min. Rhythm is regular. Left axis deviation noted. QRS is positive in rn lead I and negative in lead aVF. HI interval is prolonged. QRS interval is prolonged. QT interval is normal. No Q waves. T waves are Normal. No ST changes noted. Clinical impression: NSR w/ Non-specific ST/T Changes and 1st degree heart block. Interpreted by me. Reviewed by me. Administered Medications: 16:20 Drug: Ondansetron IVP 4 mg IVP once; over 2 minutes Route: IVP; Site: left antecubital; db 18:05 Follow up: Response: No adverse reaction db 16:20 Drug: NS 0.9% IV 500 ml 500 ml IV at 1 bolus once; to be given as a bolus over 30 db minutes Volume: 500 ml; Route: IV; Rate: 1 bolus; Site: left antecubital; 18:05 Follow up: Response: No adverse reaction; IV Status: Completed infusion; IV Intake: db 500ml 17:30 Drug: Piperacillin-Tazobactam IVPB 3.375 grams IVPB once over 60 mins; (mix in NS 100 db mL) Route: IVPB; Infused Over: 60 mins; Site: right antecubital; 18:05 Follow up: Response: No adverse reaction; IV Status: Completed infusion; IV Intake: db 100ml Disposition Summary: 06/18/24 17:11 Hospitalization Ordered Notes: Hospitalization Status: Inpatient Admission rn Provider: Tatiana Balderrama rn [facility]n Condition: Stable rn Problem: new rn Symptoms: have improved rn Bed/Room Type: Standard rn Room Assignment: 402(06/18/24 17:20) em1 Diagnosis - Infectious gastroenteritis and colitis, unspecified rn - Dehydration rn - Vomiting rn - Weakness rn Forms: - Medication Reconciliation Form rn - SBAR form rn - Leadership Thank You Letter rn Signatures: Dispatcher [employer] [facility] Chas Seaman MD MD rn Martinez, Eric em1 Raeann Fong RN RN db Corrections: (The following items were deleted from the chart) 15:15 15:15 Stool Culture+BA.LAB.BRZ ordered. [facility] 17:20 17:11 rn em1
--- NOTE | 2024-06-18 17:12 | ER ---
Nurse's Notes [facility] Name: Gerardo Babcock Age: 84 yrs Sex: Male : 1940 Arrival Date: 06/18/2024 Time: 15:03 Bed 17 Private MD: Diagnosis: Infectious gastroenteritis and colitis, unspecified;Dehydration;Vomiting;Weakness Presentation: 06/18 15:34 Chief complaint: EMS states: N/V/DIARRHEA WITH GENERAL WEAKNESS STARTED TODAY ABOUT db 12PM PER . Coronavirus screen: Client denies travel out of the [place] in the last 14 days. At this time, the client does not indicate any symptoms associated with coronavirus-19. Ebola Screen: Patient negative for fever greater than or equal to 101.5 degrees Fahrenheit, and additional compatible Ebola Virus Disease symptoms Patient denies exposure to infectious person. Patient denies travel to an Ebola-affected area in the 21 days before illness onset. No symptoms or risks identified at this time. Initial Sepsis Screen: Does the patient meet any 2 criteria? No. Patient's initial sepsis screen is negative. Does the patient have a suspected source of infection? No. Patient's initial sepsis screen is negative. Risk Assessment: Do you want to hurt yourself or someone else? Patient reports no desire to harm self or others. Onset of symptoms was June 18, 2024 at 12:30. Care prior to arrival: Medication(s) given: zofran 4 mg, IV initiated. 20 GA, in the left forearm, Glucose check: 196. 15:34 Method Of Arrival: EMS: [facility] db 15:34 Acuity: JONG 2 db Triage Assessment: 15:28 General: Appears in no apparent distress. comfortable, Behavior is calm, cooperative. db Pain: Denies pain. Respiratory: Airway is patent Respiratory effort is even, unlabored, Respiratory pattern is regular, symmetrical. Historical: - Allergies: 15:28 No Known Allergies; db - PMHx: 15:28 diabetes mellitus; STEMI; db - PSHx: 15:28 6 cardiac stents; db - Immunization history:: Adult Immunizations unknown. - Infectious Disease History:: Denies. - Family history:: not pertinent. - Social history:: Smoking status: Patient denies any tobacco usage or history of. - Hospitalizations: : No recent hospitalization is reported. Screenin:55 [facility] ED Fall Risk Assessment (Adult) History of falling in the last 3 months, db including since admission No falls in past 3 months (0 pts) Confusion or Disorientation No (0 pts) Intoxicated or Sedated No (0 pts) Impaired Gait No (0 pts) Mobility Assist Device Used No (0 pt) Altered Elimination No (0 pt) Score/Fall Risk Level 0 - 2 = Low Risk Oriented to surroundings, Maintained a safe environment. Abuse screen: Denies threats or abuse. Denies injuries from another. Nutritional screening: No deficits noted. Tuberculosis screening: No symptoms or risk factors identified. Assessment: 15:30 Reassessment: SEE TRIAGE FOR INITIAL ASSESSMENT. db 16:27 Reassessment: Patient appears in no apparent distress at this time. Patient and/or db family updated on plan of care and expected duration. Pain level reassessed. Patient is alert, oriented x 3, equal unlabored respirations, skin warm/dry/pink. General: Appears in no apparent distress. comfortable, Behavior is calm, cooperative. Neuro: Level of Consciousness is awake, alert, obeys commands, Oriented to person, place, time, Appropriate for age. Respiratory: Airway is patent Respiratory effort is even, unlabored, Respiratory pattern is regular, symmetrical. 18:04 Reassessment: Patient appears in no apparent distress at this time. Patient and/or db family updated on plan of care and expected duration. Pain level reassessed. Patient is alert, oriented x 3, equal unlabored respirations, skin warm/dry/pink. Vital Signs: 15:34 BP 145 / 77; Pulse 80; Resp 18; Temp 97.7(O); Pulse Ox 98% ; Weight 78 kg (M); db 16:21 BP 121 / 71; Pulse 83; Resp 16; Pulse Ox 100% on R/A; db 16:35 BP 133 / 61; Pulse 86; Resp 16; Pulse Ox 100% on R/A; db 17:30 BP 128 / 62; Pulse 86; Resp 16; Pulse Ox 100% on R/A; db 18:05 BP 132 / 62; Pulse 89; Resp 14; Pulse Ox 100% on R/A; db ED Course: 15:13 Patient arrived in ED. rn 15:13 Chas Seaman MD is Attending Physician. rn 15:28 Arm band placed on Patient placed in an exam room. db 15:34 Fong, Raeann, RN is Primary Nurse. db 15:36 Triage completed. db 15:[address] via stretcher. db 15:48 Initial lab(s) drawn, by me, sent to lab. EKG done. Maintain EMS IV. Dressing intact. db Good blood return noted. Site clean \T\ dry. Gauge \T\ site: 20 G LFA. 15:53 SARS-COV-2 Antigen Rapid Sent. db 15:53 Flu Sent. db 15:56 Patient has correct armband on for positive identification. Bed in low position. Call db light in reach. Side rails up X2. Client placed on continuous cardiac and pulse oximetry monitoring. NIBP monitoring applied. front desk monitor on. Pulse ox on. NIBP on. Pillow given. Head of bed. 16:[address] from [address]. db 16:27 CT Abd/Pelvis - IV Contrast Only In Process Unspecified. EDMS 16:27 CT Head Brain wo Cont In Process Unspecified. EDMS 17:10 Tatiana Balderrama MD is Hospitalizing Provider. rn 18:04 Provided Education on: ADMISSION. db 18:04 No provider procedures requiring assistance completed. Patient admitted, IV remains in db place. Administered Medications: 16:20 Drug: Ondansetron IVP 4 mg IVP once; over 2 minutes Route: IVP; Site: left antecubital; db 18:05 Follow up: Response: No adverse reaction db 16:20 Drug: NS 0.9% IV 500 ml 500 ml IV at 1 bolus once; to be given as a bolus over 30 db minutes Volume: 500 ml; Route: IV; Rate: 1 bolus; Site: left antecubital; 18:05 Follow up: Response: No adverse reaction; IV Status: Completed infusion; IV Intake: db 500ml 17:30 Drug: Piperacillin-Tazobactam IVPB 3.375 grams IVPB once over 60 mins; (mix in NS 100 db mL) Route: IVPB; Infused Over: 60 mins; Site: right antecubital; 18:05 Follow up: Response: No adverse reaction; IV Status: Completed infusion; IV Intake: db 100ml Medication: 16:42 VIS not applicable for this client. db Intake: 18:05 IV: 100ml; Total: 100ml. db 18:05 IV: 500ml; Total: 600ml. db Outcome: 17:11 Decision to Hospitalize by Provider. rn 18:04 Admitted to Med/surg via stretcher, room 402, db 18:04 Condition: stable 18:04 Instructed on the need for admit, 18:44 Patient left the ED. db Signatures: Dispatcher [employer] Chas Inman MD MD rn Benton, Danielle, RN RN db
[2024-06-18] MEDS ORDERED: NA CHLORIDE 0.9% 100 ML ONE (17:19)
[2024-06-18] MEDS ORDERED: PIPERACIL/TAZO 3.375 GM VIAL IV ONE (17:19)
[2024-06-18] MEDS ORDERED: ONDANSETRON 4 MG/2 ML VIAL IV PRN (18:21)
[2024-06-18] MEDS: NA CHLORIDE 0.9% 1,000 ML IV SCH (20:42)
[2024-06-18 21:13] VITALS: BMI 27.6
[2024-06-19] MEDS: PIPER TAZO 3.375 GM in NA CHLORIDE 0.9% 100 ML IV SCH (00:11)
[2024-06-19 00:14] LABS: Specific Gravity > 1.030 (1.005-1.030); Sqamous Epithelial None Seen /HPF (None Seen); Urine Bacteria None Seen /HPF (<20); Urine Bilirubin NEGATIVE (Negative); Urine Blood Trace (Negative); Urine Clarity Clear (Clear); Urine Color Light-Yellow (Yellow); Urine Culture Reflex Order NOT NEEDED; Urine Glucose NEGATIVE (Negative); Urine Ketones NEGATIVE (Negative); Urine Microscopic Reflex YN ORDER UMIC; Urine Mucus Slight /HPF (None Seen); Urine Nitrite NEGATIVE (Negative); Urine Protein NEGATIVE (Negative); Urine Urobilinogen Normal (Normal); Urine WBC <5 /HPF (<5)
[2024-06-19 04:07] VITALS: O2SAT 100
[2024-06-19 07:11] LABS: Absolute Eosinophils 0.1 K/uL (0-0.5); Absolute Lymphocytes (CBC) 1.5 K/uL (0.7-4.9); Absolute Monocytes 0.8 K/uL (0.1-1.3); Absolute Neutrophil 5.9 K/uL (1.8-8.0); Basophils % 0.3 % (0-1.3); Eosinophils % 1.5 % (0-4.4); Hematocrit 34.2 % (39.6-49.0); Hemoglobin 11.5 g/dL (13.6-17.9); MCH 33.4 pg (27.0-35.0); MCHC 33.6 g/dL (32.0-36.0); MCV 99.6 fL (80-100); MPV 9.2 fL (7.6-11.3); Monocytes % 9.8 % (3.3-12.3); Neutrophils % 70.4 % (41.7-73.7); Platelets 161 thou/uL (152-406); RBC Red Blood Cell Count 3.43 M/uL (4.33-5.43); Red Cell Distribution Width 14.7 % (12.1-15.2)
[2024-06-19 07:25] LABS: Anion Gap 11.2 mEq/L (5.0-15.0); Potassium 4.2 mEq/L (3.5-5.1)
--- NOTE | 2024-06-19 08:10 | HP ---
Date of Admission: 06/18/2024 Chief Complaint: Feeling weak and slurred speech. History Of Present Illness: This is an 84-year-old pleasant male patient who lives at home with his had nausea, vomiting, and diarrhea today, and as he was sitting on the commode with this problem , he felt very weak and could not get up because his legs were very weak, and at that time, also noted that his speech was little slurred, so he was brought into ER. After he was evaluated in the ER, his stroke workup was negative, but the patient was thought to be dehydrated, was given IV fluid, IV antibiotic for colitis, and after appropriate workup, he was admitted to the hospital. His condi tion improved significantly once he received IV fluid and IV antibiotic in the emergency room and I w as contacted requesting admission. When I saw him this evening, was at bedside. The patient de nies any abdominal pain. He has not had any episode of vomiting or diarrhea after he came into the h ospital. Allergies: TO LISINOPRIL CAUSING COUGH. Medications: Aspirin 81 mg daily, clopidogrel 75 mg daily, Nexium 40 mg daily, folic acid 1 mg daily , valsartan/HCTZ 160/12.5 mg daily, isosorbide mononitrate 60 mg daily, metformin 850 mg 2 times a da y, metoprolol succinate 25 mg daily, ranolazine 1000 mg daily, rosuvastatin 40 mg daily, Januvia 100 mg daily. Review of Systems: GI: As mentioned above. CONSTITUTIONAL: As mentioned above. BASTER HAND: As mentioned above. All other systems reviewed and negative. Past Medical History: Hypertension, type 2 diabetes mellitus, mixed hyperlipidemia, coronary artery disease, gastroesophageal reflux disease, osteoarthritis at multiple sites, benign prostatic hypertro phy, peripheral vascular disease, kidney stone, anemia. The patient also had a stroke and received T NK with complete recovery and this was December 16, 2023. Past history also significant for myocardial i nfarction in 2019. Past Surgical History: Significant for tonsillectomy, coronary artery stent placement in 2010, then May 27, 2018, then January 2019, and then January 15, 2024, and in 2019, he had aortic valve repl acement surgery. Family History: Father had pancreatic cancer. Brother had coronary artery disease. Social History: Negative for smoking. Use of alcohol, occasional. Physical Examination: Vital Signs: Height 5 feet 6 inches, weight 171 pounds, temperature 97.7, pulse 80, respiratory rate 18, blood pressure 145/77, oxygen saturation 98%. General: Awake, alert, oriented, not in distress. HEENT: Head atraumatic, normocephalic. Conjunctivae nonerythematous. Sclerae white. Mouth, no thr ush or edema noted. Ears/Nose, no mass, lesion, discharge noted. Neck: Supple. No JVD, lymph nodes, bruit, thyromegaly noted. Lungs: Bilateral good equal air entry. Clear to auscultation. No rhonchi. No rales. Heart: Normal heart sounds, no murmur or gallop. Abdomen: Soft, bowel sounds normal. No guarding, rigidity, tenderness, mass, hepatosplenomegaly, dis tention, or bruit noted. Extremities: No leg edema. No calf tenderness. Skin: No rash, ulcer, cellulitis. Lymphatics: No lymph node enlargement in neck, supraclavicular, infraclavicular region. Neuro: No focal neurological deficit. Chest: Unremarkable. External Genitalia: Deferred. Rectal: Deferred. Labs: COVID-19 test negative. WBC 7.9, hemoglobin 11.5, platelets 147. Sodium 139, potassium 4.3, chloride 107, bicarb 24, BUN 28, creatinine 1.19 . Lipase 50. Liver function tests unremar kable. CAT scan of the head was negative for any acute intracranial changes. CAT scan of the abdome n and pelvis shows thickening of the wall of transverse colon indicating colitis. Impression: 1. Acute gastroenteritis. 2. Volume depletion. 3. Generalized weakness secondary to above. 4. Coronary artery disease. 5. Hypertension. 6. Mixed hyperlipidemia. 7. Type 2 diabetes mellitus. 8. Anemia, chronic, unspecified. 9. Peripheral vascular disease. 10. Osteoarthritis, multiple sites. 11. Benign prostatic hypertrophy. Plan: We will admit patient to hospital for further evaluation and management of this problem. The patient is appropriate for observation and he received IV fluid in the emergency room. We will arnold nue his IV fluid per order. Continue antibiotic per order for gastroenteritis problem and volume dep letion problem. We will repeat blood work tomorrow morning. For diabetes, will not require any furt her intervention except monitoring of blood sugar and we will restart his home medication at appropri ate time. For hypertension, no need for further intervention. We will continue his antihypertensive medication, monitor blood pressure, if necessary to reduce dose, we will consider to do that dependi ng on his blood pressure medication. Hyperlipidemia will not require any further intervention except continuation of his statin therapy. Coronary artery disease problem is stable, no need for further intervention on it either. Total time spent was 80 minutes including communication with ER physician, review of emergency room v isit record, review of last office visit record from May 05, 2024, and performing today's evalua tion and management. I will see him tomorrow for followup. Details and plan of treatment discussed with the patient and his , who was at bedside. TRENT/MODL Voice ID: [id number]
[2024-06-19 08:48] LABS: Band Neutrophils 1 % (0-1); Blood Morphology Comment NOT SEEN (NOT SEEN); Differential Total Cells Count 100; Lymphocytes 19 % (15-42); Metamyelocytes 1 % (0-0); Monocytes 7 % (0-10); Myelocytes 1 % (0-0); Platelet Estimate ADEQ; Segmented Neutrophils 71 % (40-80)
[2024-06-19] MEDS: CLOPIDOGREL 75 MG TABLET PO SCH (09:02)
[2024-06-19] MEDS: ASPIRIN EC 81 MG TAB PO SCH (09:03)
[2024-06-19] MEDS: ISOSORBIDE MONO SR 60 MG TAB PO SCH (09:03)
[2024-06-19] MEDS: VALSARTAN 160 MG TAB PO SCH (09:03)
[2024-06-19 14:57] VITALS: BP 122/66; TEMP 98
--- NOTE | 2024-06-19 21:25 | DS ---
Date of Discharge: 06/19/2024 Brief History: The patient was seen this morning for followup. He was lying in bed, not in distress . The patient had 1 bowel movement after I saw him yesterday evening, but it was not collected by [facility] staff, so we do not have any stool test results. Physical Examination: HEENT: Unremarkable. Lungs: Clear to auscultation. Heart: Sounds normal. Abdomen: Soft. Bowel sounds normal. No guarding, rigidity, tenderness, distention. Extremities: No leg edema. Discharge Medications And Instructions: 1. Continue all prior home medications. 2. Augmentin 500 mg 2 times a day with food for 1 week. 3. Follow up at my office next week. Laboratory Data: Yesterday, sodium 139, potassium 4.3, chloride 107, bicarb 24, BUN 28, creatinine 1 .19, glucose 143. Liver function tests unremarkable. Lipase 50. Today, sodium 140, potassium 4.2, chloride 108, bicarb 25, BUN 21, creatinine 1.15, glucose 99. For CBC yesterday, WBC 7.9, hemoglobin 11.5, platelets 147. Today, WBC 8.4, hemoglobin 11.5, platelets 161. Hospital Course: This is an 84-year-old very pleasant male patient, came into emergency room yesterd ay with nausea, vomiting, diarrhea, generalized weakness, and some slurred speech. Please see dictat ed H and P for more information. After the patient was evaluated in emergency room, he was admitted to hospital with acute gastroenteritis and volume depletion. He was given IV fluid and IV antibiotic s in emergency room and his condition and symptoms improved and he was admitted to the hospital. He had 1 bowel movement after I saw him yesterday. No more diarrhea, no vomiting after his admission, n o abdominal pain. Overnight, his condition has remained stable and this morning I have advanced his diet from clear liquid diet to diabetic diet after he is able to tolerate that. Our plan is to disch arge him to go home with following discharge medications and instructions. His CAT scan of the head done in emergency room was negative for any acute changes and his CAT scan of abdomen and pelvis in e mergency room yesterday had shown some evidence of colitis changes in transverse colon. I have instr ucted the patient to come see me next week for followup. Final Diagnoses: 1. Acute gastroenteritis. 2. Volume depletion. 3. Hypertension. 4. Coronary artery disease. 5. . 6. . Total time spent today 25 minutes. TRENT/JUANITO Voice ID: [id number] Report ID: [id number]
== END 2024-06-19 16:40 | disposition home or self-care (01) ==
LOC: ER 15:03 → ERHOLD 17:12 → INTOOBSV 17:12 → 4TH 18:21
PROVIDERS: ADMIT Internal Medicine; ATTEND Internal Medicine
DX: K52.9 Noninfective gastroenteritis and colitis, unspecified (principal); E86.9 Volume depletion, unspecified; E86.0 Dehydration; R11.2 Nausea with vomiting, unspecified; I10 Essential (primary) hypertension; E11.9 Type 2 diabetes mellitus without complications; E78.2 Mixed hyperlipidemia; I25.10 Atherosclerotic heart disease of native coronary artery without angina pectoris; K21.9 Gastro-esophageal reflux disease without esophagitis; M19.90 Unspecified osteoarthritis, unspecified site; N40.0 Benign prostatic hyperplasia without lower urinary tract symptoms; I73.9 Peripheral vascular disease, unspecified; D64.9 Anemia, unspecified; Z86.73 Personal history of transient ischemic attack (TIA), and cerebral infarction without residual deficits
CPT/HCPCS: 96365; 96361; 93005; 87045; 85025 ×2; 81001; 80048; 36415; 82565; 82947 ×3; 87046; 83690; 80053; 87804 ×2; 70450; 74177; 96375; 99285; 87811; Q9967; J2543 ×3; J2405; J7040; J7030; G0378